=== PATIENT | female | born 1960 | race Caucasian/White ===

== ENCOUNTER 2020-05-27 15:40 | Outpatient (CLI) | payer BC, SELFPAY ==
--- NOTE | ~2020-05-27 | MM_ITS ---
EXAMINATION: MM screening davian BI w nafisa HISTORY: Screening mammogram TECHNIQUE: Craniocaudal and mediolateral oblique 3-D tomosynthesis images were obtained and synthetic 2-D images were generated. CAD analysis was submitted and interpreted. COMPARISON: 02/01/2019, 09/05/2017 bilateral digital screening mammogram examinations BREAST PARENCHYMAL COMPOSITION: There are scattered areas of fibroglandular density. FINDINGS: There is no evidence of suspicious mass, calcification, or architectural distortion to sugg est malignancy in either breast. There has been no suspicious interval change. IMPRESSION: 1. No mammographic evidence of malignancy. 2. Recommend routine screening mammography in one year. BI-RADS Category 1: Negative Reviewed, dictated and finalized at location A. 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
== END 2020-05-27 15:41 | disposition home or self-care (01) ==
LOC: ANHIMG 15:43
PROVIDERS: Visit Provider Obstetrics & Gynecology
DX: Z12.31 Encounter for screening mammogram for malignant neoplasm of breast (principal)
CPT/HCPCS: 77063; 77067

== ENCOUNTER → 2020-07-23 17:33 | Outpatient (CLI) | payer BC, SELFPAY ==
--- NOTE | ~2020-07-23 | DEXA_ITS ---
Bone Density Report Name: Kelly Charles Age: 59 Sex: Female Ethnicity: White Date of : 1960 Indication: postmenopausal osteoporosis; Referring Provider: HUGO DURAN Study: Bone densitometry was performed. Exam Date: July 23, 2020 Accession number: [id number] Bone Density: Region BMD T-score Z-score Classification AP Spine (L1-L4) 0.690 -3.2 -1.8 Osteoporosis Femoral Neck (Left) 0.635 -1.9 -0.6 Osteopenia Total Hip (Left) 0.790 -1.2 -0.3 Osteopenia Femoral Neck (Right) 0.671 -1.6 -0.3 Osteopenia Total Hip (Right) 0.799 -1.2 -0.2 Osteopenia Total Hip Mean 0.795 -1.2 -0.3 Osteopenia World Health Organization criteria for BMD impression classify patients as: Normal (T-score at or above -1.0), Osteopenia (T-score between -1.0 and -2.5), or Osteoporosis (T-score at or below -2.5). 10-year Fracture Risk: FRAX not reported because: Some T-score for Spine Total or Hip Total or Femoral Neck at or below -2.5 Previous Exams: Region Exam Age BMD T-score BMD Change BMD Change Date g/cm2 vs Baseline vs Previous AP Spine(L1-L4) 07/23/2020 59 0.690 -3.2 -0.172* -0.069* 09/05/2017 56 0.759 -2.6 -0.103* 0.001 06/27/2014 53 0.758 -2.6 -0.103* -0.103* 09/17/2010 49 0.861 -1.7 Total Hip(Left) 07/23/2020 59 0.790 -1.2 -0.191* -0.066* 09/05/2017 56 0.856 -0.7 -0.125* -0.019 06/27/2014 53 0.875 -0.5 -0.106* -0.106* 09/17/2010 49 0.981 0.3 Total Hip(Right) 07/23/2020 59 0.799 -1.2 -0.147* -0.072* 09/05/2017 56 0.871 -0.6 -0.075* -0.009 06/27/2014 53 0.880 -0.5 -0.066* -0.066* 09/17/2010 49 0.946 0.0 *Denotes significance at 95% confidence level, LSC for AP Spine = 0.022 g/cm2, LSC for Total Hip = 0.027 g/cm2 Clinical Information Provided by Patient: Has used the following medications: Vitamin D, Calcium, MTV Patient maximum height was 68.0 Menopause Age: 48 No regular weight bearing exercise Drinks caffeinated beverages Onset of menses at age 11 Number of children 3 Impression: The patient has osteoporosis, based on the Total Spine T-score. The BMD for the AP Spine(L1-L4) decreased, changing by -0.069 since the last DXA exam. The BMD for the Total Hip(Left) decreased, changing by -0.066 since the last DXA exam. The BMD for the Total Hip(Right) decreased, egan
== END ==
PROVIDERS: Visit Provider Obstetrics & Gynecology
DX: Z78.0 Asymptomatic menopausal state (principal); M81.0 Age-related osteoporosis without current pathological fracture; M16.0 Bilateral primary osteoarthritis of hip
CPT/HCPCS: 77080

== ENCOUNTER 2021-07-11 09:32 | Outpatient (CLI) | payer BC, SELFPAY ==
--- NOTE | ~2021-07-11 | MM_ITS ---
EXAMINATION: MM screening davian BI w nafisa HISTORY: Screening TECHNIQUE: Craniocaudal and mediolateral oblique 3-D tomosynthesis images were obtained and synthetic 2-D images were generated. CAD analysis was submitted and interpreted. COMPARISON: Comparison to multiple prior studies sequentially, with oldest reviewed study dated 08/14. BREAST PARENCHYMAL COMPOSITION: The breasts are heterogeneously dense, which may obscure small masses . FINDINGS: There is no evidence of suspicious mass, calcification, or architectural distortion to sugg est malignancy in either breast. There has been no suspicious interval change. IMPRESSION: 1. No mammographic evidence of malignancy. 2. Recommend routine screening mammography in one year. BI-RADS Category 1: Negative Reviewed, dictated and finalized at location A. 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
== END 2021-07-11 09:33 | disposition home or self-care (01) ==
LOC: ANHIMG 09:34
PROVIDERS: PCP Nurse Practitioner Family; Visit Provider Obstetrics & Gynecology
DX: Z12.31 Encounter for screening mammogram for malignant neoplasm of breast (principal)
CPT/HCPCS: 77063; 77067

== ENCOUNTER 2022-09-07 08:49 | Outpatient (CLI) | payer OTHER, SELFPAY ==
--- NOTE | ~2022-09-07 | MM_ITS ---
EXAMINATION: MM screening davian BI w nafisa HISTORY: Screening mammogram TECHNIQUE: Craniocaudal and mediolateral oblique 3-D tomosynthesis images were obtained and synthetic 2-D images were generated. CAD analysis was submitted and interpreted. COMPARISON: July 11, 2021, May 27, 2020, February 01, 2019 bilateral screening mammogram examin ations BREAST PARENCHYMAL COMPOSITION: The breasts are heterogeneously dense, which may obscure small masses . FINDINGS: There is no evidence of suspicious mass, calcification, or architectural distortion to sugg est malignancy in either breast. There has been no suspicious interval change. IMPRESSION: 1. No mammographic evidence of malignancy. 2. Recommend routine screening mammography in one year. BI-RADS Category 1: Negative Reviewed, dictated and finalized at location A.
--- NOTE | ~2022-09-07 | DEXA_ITS ---
Bone Density Report Name: CHET CHRISTIAN Age: 61 Sex: Female Ethnicity: White Date of : 1960 Indication: postmenopausal; screening for osteoporosis; Referring Provider: HUGO DURAN Study: Bone densitometry was performed. Exam Date: September 07, 2022 Accession number: [id number] Bone Density: Region BMD T-score Z-score Classification AP Spine(L1-L4) 0.714 -3.0 -1.4 Osteoporosis Femoral Neck (Left) 0.642 -1.9 -0.5 Osteopenia Total Hip (Left) 0.778 -1.3 -0.2 Osteopenia Femoral Neck (Right) 0.663 -1.7 -0.3 Osteopenia Total Hip (Right) 0.784 -1.3 -0.2 Osteopenia Total Hip Mean 0.781 -1.3 -0.2 Osteopenia World Health Organization criteria for BMD impression classify patients as: Normal (T-score at or above -1.0), Osteopenia (T-score between -1.0 and -2.5), or Osteoporosis (T-score at or below -2.5). 10-year Fracture Risk: FRAX not reported because: Some T-score for Spine Total or Hip Total or Femoral Neck at or below -2.5 Treated for osteoporosis Clinical Information Provided by Patient: Is being treated for osteoporosis Has used the following medications: Reclast (i.e. zoledronate), Vitamin D, Calcium Patient maximum height was 68 Menopause Age: 47 Drinks caffeinated beverages Onset of menses at age 11 Number of children 3 Impression: The patient has osteoporosis, based on the Total Spine T-score. Discussion: It is important to ask patients whether they are taking their medications and to encourage continued and appropriate compliance with their osteoporosis therapies to reduce fracture risk. It is also important to review their risk factors and encourage appropriate calcium and vitamin D intakes, exercise, fall prevention and other lifestyle measures. Follow-Up: Consider a repeat BMD and Vertebral Fracture Assessment (VFA) exam in 2 years or sooner if medically necessary, to reassess this patient's status. Reported by: ROMAN on 09/07/2022 9:17:00 AM. Reviewed, dictated and finalized at location AGordon ZHOU
== END 2022-09-07 08:50 | disposition home or self-care (01) ==
LOC: ANHIMG 08:52
PROVIDERS: PCP Nurse Practitioner Family; Visit Provider Obstetrics & Gynecology
DX: Z12.31 Encounter for screening mammogram for malignant neoplasm of breast (principal); Z78.0 Asymptomatic menopausal state; M81.0 Age-related osteoporosis without current pathological fracture; M85.88 Other specified disorders of bone density and structure, other site
CPT/HCPCS: 77063; 77067; 77080

== ENCOUNTER 2023-09-23 14:53 | Outpatient (CLI) | payer OTHER, SELFPAY ==
--- NOTE | ~2023-09-23 | MM_ITS ---
EXAMINATION: MM screening davian BI w nafisa HISTORY: Screening TECHNIQUE: Craniocaudal and mediolateral oblique 3-D tomosynthesis images were obtained and synthetic 2-D images were generated. CAD analysis was submitted and interpreted. COMPARISON: Comparison to multiple prior studies sequentially, with oldest reviewed study dated 05/07. BREAST PARENCHYMAL COMPOSITION: Not dense: There are scattered areas of fibroglandular density. FINDINGS: There is no evidence of suspicious mass, calcification, or architectural distortion to sugg est malignancy in either breast. There has been no suspicious interval change. IMPRESSION: 1. No mammographic evidence of malignancy. 2. Recommend routine screening mammography in one year. BI-RADS Category 1: Negative Reviewed, dictated and finalized at location B.
== END 2023-09-23 14:54 | disposition home or self-care (01) ==
LOC: ANHIMG 14:56
PROVIDERS: PCP Nurse Practitioner Family; Visit Provider Obstetrics & Gynecology
DX: Z12.31 Encounter for screening mammogram for malignant neoplasm of breast (principal)
CPT/HCPCS: 77063; 77067

== ENCOUNTER 2023-12-27 12:30 | Outpatient (CLI) | payer OTHER, SELFPAY ==
--- NOTE | 2023-12-27 12:37 | ECHO_ITS ---
Patient Info Name: Kelly Charles Age: 63 years : 1960 Gender: Female Ht: 68 in Wt: 145 lbs BSA: 1.78 m2 HR: 74 bpm BP: 112 / 86 mmHg Heart Rhythm: Sinus Rhythm Technical Quality: Good Exam Date: 12/27/2023 12:44 PM Exam Location: Echo Lab Patient Status: Outpatient Admit Date: 12/27/2023 Staff Ordering Physician: Josh Peres DO Can Inspector: Almaz Bright RDCS Attending Provider: Josh Peres DO Referring Physician: Ja TOTH; Exam Type: CA echo doppler color flow Study Info Indications - Aneurysm of the ascending aorta, without ruputure Complete two-dimensional, color flow and Doppler transthoracic echocardiogram is performed. Summary 1. Complete two-dimensional, color flow and Doppler transthoracic echocardiogram is performed. 2. Left ventricular chamber dimension is normal. 3. Left ventricular systolic function is normal, estimated at 55-60%. 4. The left ventricular diastolic function is grade I diastolic dysfunction. 5. E/e' 8 is minimally elevated. 6. There is mild aortic valve sclerosis. 7. There is trace mitral valve regurgitation. 8. There is mild tricuspid valve regurgitation. 9. No pulmonary hypertension, estimated pulmonary arterial systolic pressure is 20 mmHg. 10. There is trace pulmonic regurgitation. Left Ventricle E/e' 8 is minimally elevated. Left ventricular chamber dimension is normal. Left ventricular systolic function is normal, estimated at 55-60%. The left ventricular diastolic function is grade I diastolic dysfunction. Right Ventricle Right ventricular systolic function is normal and with normal TAPSE 2.1 cm. Right ventricular chamber dimension is normal. Left Atria Left atrial chamber dimension is normal. Right Atria Right atrial chamber dimension is normal. Aortic Valve The aortic valve is trileaflet. There is mild aortic valve sclerosis. There is no aortic valve stenosis. There is no aortic valve regurgitation. Pulmonic Valve There is trace pulmonic regurgitation. Mitral Valve There is no mitral valve stenosis. There is trace mitral valve regurgitation. Tricuspid Valve There is mild tricuspid valve regurgitation. No pulmonary hypertension, estimated pulmonary arterial systolic pressure is 20 mmHg. Pericardium/Pleural There is no pericardial effusion. Inferior Vena Cava Normal inferior vena cava with >50% collapse upon inspiration consistent with normal right atrial pressure, 5 mmHg. Aorta The aortic root size at the sinus of Valsalva is normal at 3.6 cm. The prox ascending aorta size is normal at 3.7 cm. Left Ventricular Outflow Tract Name Value Normal LVOT 2D LVOT Diameter 2.0 cm LVOT Doppler LVOT Peak Gradient 3 mmHg LVOT Mean Gradient 1 mmHg LVOT VTI 14 cm LVOT VTI/AV VTI Ratio 0.5 LVOT Stroke Volume 42 ml LVOT CO 2.6 l/min LVOT CI 1.5 l/min/m2 Pulmonic Valve Name Value Normal
== END 2023-12-27 12:31 | disposition home or self-care (01) ==
LOC: ANHCARD 12:33
PROVIDERS: PCP Nurse Practitioner Family; Visit Provider Internal Medicine Cardiovascular Disease
DX: I71.21 Aneurysm of the ascending aorta, without rupture (principal); I51.89 Other ill-defined heart diseases; I35.8 Other nonrheumatic aortic valve disorders; I36.1 Nonrheumatic tricuspid (valve) insufficiency
CPT/HCPCS: 93306

== ENCOUNTER 2024-08-28 08:45 | Outpatient (CLI) | payer OTHER, SELFPAY ==
--- NOTE | ~2024-08-28 | US_ITS ---
EXAMINATION: US pelvic complete w TV DATE: 08/28/2024 09:08 INDICATION: Postmenopausal bleeding. TECHNIQUE: Multiple transabdominal and transvaginal sonographic images of the pelvis were obtained. COMPARISON: CT abdomen and pelvis 07/30/2011 FINDINGS: TRANSABDOMINAL ULTRASOUND: The uterus measures 8.3 x 5.5 x 3.8 cm. There is no free fluid in the pelvis. TRANSVAGINAL ULTRASOUND: The endometrial complex measures 5 mm in thickness, which is the borderline of normal. The ovaries ar e not visualized. IMPRESSION: 1. Normal pelvis. Reviewed, dictated and finalized at location A. IMPRESSION: 1. Normal pelvis.
== END 2024-08-28 08:46 | disposition home or self-care (01) ==
LOC: GOSHIMG 08:46
PROVIDERS: PCP Obstetrics & Gynecology; Visit Provider Obstetrics & Gynecology
DX: N95.0 Postmenopausal bleeding (principal)
CPT/HCPCS: 76830; 76856

== ENCOUNTER 2024-09-26 15:31 | Outpatient (CLI) | payer OTHER, SELFPAY ==
--- NOTE | ~2024-09-26 | MM_ITS ---
EXAMINATION: MM screening davian BI w nafisa HISTORY: Screening TECHNIQUE: Craniocaudal and mediolateral oblique 3-D tomosynthesis images were obtained and synthetic 2-D images were generated. CAD analysis was submitted and interpreted. COMPARISON: Comparison to multiple prior studies sequentially, with oldest reviewed study dated 07/2017. BREAST PARENCHYMAL COMPOSITION: Dense: The breasts are heterogeneously dense, which may obscure small masses FINDINGS: There is no evidence of suspicious mass, calcification, or architectural distortion to sugg est malignancy in either breast. There has been no suspicious interval change. IMPRESSION: 1. No mammographic evidence of malignancy. 2. Recommend routine screening mammography in one year. BI-RADS Category 1: Negative Reviewed, dictated and finalized at location A.
--- OUTSIDE RECORDS SUMMARY | 2024-09-26 17:30 | XMS_ITS | Referral Summary ---
Author Organization [facility] Address [address] [place] [address] Phone Care Team Providers Care Engineering Manager Electronics Name Role Phone Ashlee Pereyra PHOTO ENGRAVER Primary Care Provider + Allergies No known active allergies Medications multivitamin tablet tablet take 1 tablet by oral route every day with food 0 1 Active methocarbamol (ROBAXIN) 500 mg tablet TAKE ONE TABLET BY MOUTH THREE TIMES A DAY 90 0 5 Active cholecalciferol (VITAMIN D3) 2,000 unit tablet Take 1 tablet by oral route every day 0 0 7 Active polyethylene glycol (MIRALAX) 17 gram/dose powder take (17G) by oral route every day mixed with 8 oz. water, juice, soda, coffee or tea 0 0 5 Active calcium carbonate (CALCIUM 600) 1,500 mg (600 mg of elemental calcium) tablet take 1 by Oral route once 90 0 5 Active amitriptyline (ELAVIL) 10 mg tablet take 1 tablet by oral route every day at bedtime 90 3 5 Active magnesium gluconate 200 mg tabletIndicatio ns:hypomagnesem ia 1 tablet (200 mg total) Active acidophilus-pec tin, citrus 100 million cell-10 mg capsule Take by mouth Activ e acyclovir (ZOVIRAX) 400 mg tablet 2 tablets (800 mg total) Active prednisoLONE acetate (PRED FORTE) 1 % ophthalmic suspension prednisolone acetate 1 % eye drops,suspension Active esomeprazole DR (NexIUM) 20 mg capsule Take 1 capsule (20 mg total) by mouth daily before breakfast Active brimonidine-shaheed oloL (COMBIGAN) 0.2-0.5 % ophthalmic solution INSTILL ONE DROP TWICE DAILY RIGHT EYE Active brimonidine-shaheed oloL (COMBIGAN) 0.2-0.5 % ophthalmic solution INSTILL ONE DROP TWICE DAILY RIGHT EYE 4 Active estradioL (ESTRACE) 0.01 % (0.1 mg/gram) vaginal cream INSERT 1 GRAM VAGINALLY TWICE WEEKLY Active estradioL (VIVELLE-DOT) 0.1 mg/24 hr APPLY 0.1MG TO STOMACH, UPPER ARM, OR BUTTOCKS TWICE WEEKLY 4 Active lisinopriL (PRINIVIL,ZESTR IL) 5 mg tablet Take 1 tablet (5 mg total) by mouth daily Active lovastatin (MEVACOR) 20 mg tablet Take 1 tablet (20 mg total) by mouth daily Active progesterone (PROMETRIUM) 100 mg capsule Take 1 capsule (100 mg total) by mouth nightly 4 Active valACYclovir (VALTREX) 1 gram tablet Take 1 tablet 3 times a day by oral route as directed for 7 days. 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/2016): Psychogenic headache Insomnia 12/26/2014 Overview (09/09/2016): Insomnia Muscle pain 07/18/2014 Abdominal pain 07/18/[address] 05/16/2014 Neck pain 09/20/2013 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 Chest pain 09/20/2013 Joint pain 09/20/2013 Encounter for preventive health examination 03/07 Immunizations Immunization Administration Dates Next Due Influenza, Quadrivalent, Split, Intramuscular Influenza, Trivalent, IM (MDV) 03/10/2014 Social History Tobacco Use Types Packs/Day Years Used Date Smoking Tobacco: Never Smokeless Tobacco: Never Alcohol Use Standard Drinks/Week Comments Yes 0 (1 standard drink = 0.6 oz pur e alcohol) Comments Unknown Sex and Gender Information Value Date Recorded Sex Assigned at Not on file Legal Sex Female 3:41 PM [employer] Gender Identity Not on file Sexual Orientation Not on file Last Filed Vital Signs Vital Sign Reading Time Taken Comments Blood Pressure 107/81 10/17/2020 9:49 AM CDT Pulse 62 10/17/2020 9:49 AM CDT Temperature 36.7 C (98 F) 10/17/2020 9:49 AM CDT Respiratory Rate 18 10/17/2020 9:49 AM CDT Oxygen Saturation 100% 10/17/2020 9:49 AM CDT Inhaled Oxygen Concentration - - Weight 64.4 kg (142 lb) 01/23/2024 12:46 PM CDT Height 170.6 cm (5' 7.17 ) 01/23/2024 12:46 PM C DT Body Mass Index 22.13 01/23/2024 12:46 PM CDT Plan of Treatment Not on file Procedures Procedure Name Priority Date/Time Associated Diagnosis Comments COLONOSCOPY 10/17/2020 7:21 AM CDT from Last 3 Months or Most Recently Relevant to Health Maintenance Results * COLONOSCOPY (10/17/2020 7:21 AM CDT) Anatomical Region Laterality Modality Other Narrative Procedure Note Pee Leija MD - 10/17/2020 7:21 AM CDT [facility] Patient Name: Kelly Charles Procedure Date: 10/17/2020 7:21 AM Date of : 1960 Admit Type: Outpatient Age: 59 Gender: Female Attending MD: Pee Leija M.D. [facility] 2 Note Status: Finalized Patient Profile: Refer to note in patient chart for documentation of history and physical. Procedure: Colonoscopy Indications: High risk colon cancer surveillance: Personalhistory of colonic polyps, Last colonoscopy: September 2015 Referring MD: STEPHANY Rabago Providers: Pee Leija M.D. Impression: - Hemorrhoids found on perianal exam. - The entire examined colon is normal. - No specimens collected. Recommendation: - Discharge patient to home. - Resume previous diet. - Continue present medications. - Repeat colonoscopy in 5 years for surveillance. - Return to primary care physician as previously scheduled. Medicines: Propofol per Anesthesia Complications: No immediate complications. Estimated Blood Loss: Estimated blood loss: none. Procedure: Pre-Anesthesia Assessment: - This assessment was completed [Time ofAssessment] prior to the administration of sedation. The benefits, risks and alternatives of theprocedure and sedation were discussed and informed consentwas obtained. All questions were answered. Please referto the signed informed consent document in the medical record. The bowel preparation used was Miralax via single dose instruction. The bowel preparation used was bisacodyl tablets via single dose instruction.The scope was passed under direct vision. TheColonoscope [id number] was introduced through the anus and advanced to the the cecum, identified by appendiceal orifice and ileocecal valve. The scopewas passed under direct vision. The [id number] was introduced through the and advancedto the. The colonoscopy was extremely difficult due toa redundant colon. Successful completion of the procedure was aided by changing the patient to a supine position. The patient tolerated theprocedure well. The quality of the bowel preparation was excellent. Findings: Hemorrhoids were found on perianal exam. The colon (entire examined portion) appeared normal. Electronically signed by Pee Leija M.D. Pee Leija M.D. 10/17/2020 9:20:32 AM Number of Addenda: 0 Note Initiated On: 10/17/2020 7:21 AM Procedure Code(s): --- Professional --- G0105, Colorectal cancer screening; colonoscopy on individual at high risk Diagnosis Code(s): --- Professional --- K64.9, Unspecified hemorrhoids Z86.010, Personal history of colonic polyps CPT copyright 2019 [employer]. All rights reserved. The codes documented in this report are preliminary and upon veneer drier reviewmay be revised to meet current compliance requirements. Recognized by the [employer] for promoting quality in endoscopy Pee Leija MD ENDOSCOPY PROCEDURES Final Re sult from Last 3 Months or Most Recently Relevant to Health Maintenance Insurance [facility] BLUE ACCESS [facility] Advance Directives For more information, please contact: [phone] * Full Code (Latest Code Status on File) Date Activated Date Inactivated Comments 10/17/2020 7:57 AM 10/17/2020 2:13 PM * Full Code Date Activated Date Inactivated Comments 10/17/2020 7:56 AM 10/17/2020 7:57 AM Care Teams Engineering Manager Electronics Relationship Specialty Start Date End Date Ashlee Pereyra NP PCP - General Nurse Practitioner 05/15/19
--- OUTSIDE RECORDS SUMMARY | 2024-09-26 17:30 | XMS_ITS | Data Portability ---
Author Organization [facility] [employer], Main Office Address [address] [place] [address] Assessment No assessment recorded. Plan of Treatment Reminders Order Date Submit Date Provider Last Modified By Organization Details Last Modified Time Details Appointments None record ed. Lab None record ed. Referral None record ed. Procedures None record ed. Surgeries None record ed. Imaging None record ed. Medication Orders None record ed. Patient TargetsNo targets recorded. Patient Instructions Encounter Date Encounter Id Patient Instructions Last Modified By Organization Details Last Modified Time 04/14/2023 [id number] FU in 1 year for wellness after 04/15/24 [email or web address] Not available 04/14/2023 16:43:11 Reason for Referral None Reported. Results Created Date Observation Date Name Description Value Unit Range Abnormal Flag Note LastModifiedBy Organization Detail LastModifiedTime 02/18/2002/17/2021 COMPR EHENS EVE METAB OLIC PANEL sodium 140 mmol/ L 137-14 5 Not Available [facility] (Lab) [address] [place], [address], 02/17/2021 21:29:46 02/18/2002/17/2021 COMPR EHENS EVE METAB OLIC PANEL potassium 4.7 mmol/ L 3.5-5. 1 Not Available [facility] (Lab) [address] [place], [address], 02/17/2021 21:29:46 02/18/2002/17/2021 COMPR EHENS EVE METAB OLIC PANEL chloride 104 mmol/ L 98-107 Not Available [facility] (Lab) [address] [place], [address], 02/17/2021 21:29:46 02/18/20 21 02/17/2021 COMPR EHENS EVE METAB OLIC PANEL carbon dioxide 30 mmol/ L 22-30 Not Available [facility] (Lab) [address] [place], [address], 02/17/2021 21:29:46 02/18/20 21 02/17/2021 COMPR EHENS EVE METAB OLIC PANEL agap 10.7 mmol/ L 14-22 low Not Available [facility] (Lab) [address] [place], [address], 02/17/2021 21:29:46 02/18/20 21 02/17/2021 COMPR EHENS EVE METAB OLIC PANEL glucose 85 mg/dL 70-99 Not Available [facility] (Lab) [address] [place], [address], 02/17/2021 21:29:46 02/18/20 21 02/17/2021 COMPR EHENS EVE METAB OLIC PANEL BUN 21 mg/dL 8-19 high Not Available [facility] (Lab) [address] [place], [address], 02/17/2021 21:29:46 02/18/20 21 02/17/2021 COMPR EHENS EVE METAB OLIC PANEL creatinine 0.73 mg/dL 0.66-1 .25 Not Available [facility] (Lab) [address] [place], [address], 02/17/2021 21:29:46 02/18/20 21 02/17/2021 COMPR EHENS EVE METAB OLIC PANEL GFR >60 Refer ence Range : [place] ge GFR Healt hy Adult : >60 mL/mi n/1.7 3 m2 Chron ic Kidne y Disea se: 15-60 mL/mi n/1.7 3 m2 Kidne y Failu re: <15/m L/min /1.73 m2 www.n iddk. nih.g ov MDRD study equat ion hasn' t been valid ated in child frandy <18 yrs of age, pregn ant women , the elder ly >85 yrs of age, or in some racia l or ethni c subgr oups, suc as Hispa nics. Outsi de the valid ated earnest eters , estim ated GFR is less accur ate requi ring clini braden judgm ent on a case by case basis . Clini braden inter preta tion for other races and ages must be made by the clini david . Futhe rmore , any of th e limit ation s with the use of serum creat inine relat ed to nutri evelyn l statu s o r medic ation usage hasn' t accou nted for the MDRD Study equat ion. For perso ns < 18 yrs of age, a pedia tric GFR calcu lator can be locat ed on the [facility] websi te: https :[email or web address] [email or web address] [email or web address] rg/pr ofess ional s/kdo qi/gf r_cal culat or Not Available [facility] (Lab) [address] [place], [address], 02/17/2021 21:29:46 02/18/20 21 02/17/2021 COMPR EHENS EVE METAB OLIC PANEL alkaline phosphatase 35 U/L 38-126 low Not Available [facility] (Lab) [address] [place], [address], 02/17/2021 21:29:46 02/18/20 21 02/17/2021 COMPR EHENS EVE METAB OLIC PANEL alanine aminotransfe rase 21 U/L 0-35 Not Available [facility] (Lab) [address] [place], [address], 02/17/2021 21:29:46 02/18/20 21 02/17/2021 COMPR EHENS EVE METAB OLIC PANEL aspartate aminotransfe rase 34 U/L 15-37 Not Available [facility] (Lab) [address] [place], [address], 02/17/2021 21:29:46 02/18/20 21 02/17/2021 COMPR EHENS EVE METAB OLIC PANEL bilirubin, total 0.70 mg/dL 0.20-1 .30 Not Available [facility] (Lab) [address] [place], [address], 02/17/2021 21:29:46 02/18/20 21 02/17/2021 COMPR EHENS EVE METAB OLIC PANEL calcium 9.6 mg/dL 8.4-10 .2 Not Available [facility] (Lab) [address] [facility] [place], [address], 02/17/2021 21:29:46 02/18/20 21 02/17/2021 COMPR EHENS EVE METAB OLIC PANEL total protein 7.8 g/dL 6.3-8. 2 Not Available [facility] (Lab) [address] [place], [address], 02/17/2021 21:29:46 02/18/20 21 02/17/2021 COMPR EHENS EVE METAB OLIC PANEL albumin 4.7 g/dL 3.4-5. 0 Not Available [facility] (Lab) [address] [place], [address], 02/17/2021 21:29:46 02/18/20 21 02/17/2021 COMPR EHENS EVE METAB OLIC PANEL globulin 3.1 g/dL 2.6-4. 2 Not Available [facility] (Lab) [address] [place], [address], 02/17/2021 21:29:46 02/18/20 21 02/17/2021 COMPR EHENS EVE METAB OLIC PANEL A/G ratio 1.5 ratio 1.0-2. 0 Not Available [facility] (Lab) [address] [place], [address], 02/17/2021 21:29:46 02/18/20 21 02/17/2021 CBC/C OMPLE TE BLD COUNT W/DIF F white blood cells 3.5 x10'3 /uL 4.2-10 .8 low Not Available [facility] (Lab) [address] [place], [address], 02/17/2021 20:28:08 02/18/20 21 02/17/2021 CBC/C OMPLE TE BLD COUNT W/DIF F red blood cells 4.31 x10'6 /uL 3.80-5 .20 Not Available [facility] (Lab) [address] [facility] [place], [address], 02/17/2021 20:28:08 02/18/20 21 02/17/2021 CBC/C OMPLE TE BLD COUNT W/DIF F hemoglobin 14.0 g/dL 12.0-1 5.6 Not Available [facility] (Lab) [address] [place], [address], 02/17/2021 20:28:08 02/18/20 21 02/17/2021 CBC/C OMPLE TE BLD COUNT W/DIF F hematocrit 42.5 % 35.7-4 5.7 Not Available [facility] (Lab) [address] [facility] [place], [address], 02/17/2021 20:28:08 02/18/20 21 02/17/2021 CBC/C OMPLE TE BLD COUNT W/DIF F mean red cell volume 98.6 fL 82.0-9 9.0 Not Available [facility] (Lab) [address] [place], [address], 02/17/2021 20:28:08 02/18/20 21 02/17/2021 CBC/C OMPLE TE BLD COUNT W/DIF F mean red cell hemoglobin 32.5 pg 27.0-3 3.0 Not Available [facility] (Lab) [address] [place], [address], 02/17/2021 20:28:08 02/18/20 21 02/17/2021 CBC/C OMPLE TE BLD COUNT W/DIF F mean RBC HGB concentratio n 32.9 g/dL 31.0-3 6.0 Not Available [facility] (Lab) [address] [place], [address], 02/17/2021 20:28:08 02/18/20 21 02/17/2021 CBC/C OMPLE TE BLD COUNT W/DIF F red cell distribution width 12.0 % 11.8-1 5.5 Not Available [facility] (Lab) [address] [place], [address], 02/17/2021 20:28:08 02/18/20 21 02/17/2021 CBC/C OMPLE TE BLD COUNT W/DIF F platelets 266 x10'3 /uL 150-40 0 Not Available [facility] (Lab) [address] [place], [address], 02/17/2021 20:28:08 02/18/20 21 02/17/2021 CBC/C OMPLE TE BLD COUNT W/DIF F mean platelet volume 10.0 fL 9.0-12 .4 Not Available [facility] (Lab) [address] [place], [address], 02/17/2021 20:28:08 02/18/20 21 02/17/2021 CBC/C OMPLE TE BLD COUNT W/DIF F neutrophils 50.5 % 39.0-7 2.0 Not Available [facility] (Lab) [address] [place], [address], 02/17/2021 20:28:08 02/18/20 21 02/17/2021 CBC/C OMPLE TE BLD COUNT W/DIF F lymphocytes 34.8 % 16.0-4 7.0 Not Available [facility] (Lab) [address] [place], [address], 02/17/2021 20:28:08 02/18/20 21 02/17/2021 CBC/C OMPLE TE BLD COUNT W/DIF F monocytes 9.6 % 5.0-12 .0 Not Available [facility] (Lab) [address] [place], [address], 02/17/2021 20:28:08 02/18/20 21 02/17/2021 CBC/C OMPLE TE BLD COUNT W/DIF F eosinophils 4.0 % 1.0-7. 0 Not Available [facility] (Lab) [address] [place], [address], 02/17/2021 20:28:08 02/18/20 21 02/17/2021 CBC/C OMPLE TE BLD COUNT W/DIF F basophils 0.8 % 0.0-2. 0 Not Available [facility] (Lab) [address] [place], [address], 02/17/2021 20:28:08 02/18/20 21 02/17/2021 CBC/C OMPLE TE BLD COUNT W/DIF F immature granulocytes 0.3 % 0.00-0 .50 Not Available [facility] (Lab) [address] [place], [address], 02/17/2021 20:28:08 02/18/20 21 02/17/2021 CBC/C OMPLE TE BLD COUNT W/DIF F neutrophils, absolute count 1.78 x10'3 /uL 1.5-8. 0 Not Available [facility] (Lab) [address] [place], [address], 02/17/2021 20:28:08 02/18/20 21 02/17/2021 CBC/C OMPLE TE BLD COUNT W/DIF F lymphocytes, absolute count 1.23 x10'3 /uL 1.07-3 .43 Not Available [facility] (Lab) [address] [place], [address], 02/17/2021 20:28:08 02/18/20 21 02/17/2021 CBC/C OMPLE TE BLD COUNT W/DIF F monocytes, absolute count 0.34 x10'3 /uL 0.29-0 .99 Not Available [facility] (Lab) [address] [place], [address], 02/17/2021 20:28:08 02/18/20 21 02/17/2021 CBC/C OMPLE TE BLD COUNT W/DIF F eosinophils, absolute count 0.14 x10'3 /uL 0.02-0 .53 Not Available [facility] (Lab) [address] [place], [address], 02/17/2021 20:28:08 02/18/20 21 02/17/2021 CBC/C OMPLE TE BLD COUNT W/DIF F basophils, absolute count 0.03 x10'3 /uL 0.01-0 .08 Not Available [facility] (Lab) [address] [place], [address], 02/17/2021 20:28:08 02/18/20 21 02/17/2021 CBC/C OMPLE TE BLD COUNT W/DIF F immature granulocytes ,absolute 0.01 x10'3 /uL 0.00-0 .05 Not Available [facility] (Lab) [address] [place], [address], 02/17/2021 20:28:08 02/18/20 21 02/17/2021 CBC/C OMPLE TE BLD COUNT W/DIF F nucleated red blood cells 0.0 % -0 Not Available [facility] (Lab) [address] [place], [address], 02/17/2021 20:28:08 02/18/20 21 02/17/2021 CBC/C OMPLE TE BLD COUNT W/DIF F NRBC# 0.00 x10'3 /uL Not Available [facility] (Lab) [address] [place], [address], 02/17/2021 20:28:08 05/08/20 21 05/08/2021 FOLAT E, SERUM /PLAS MA folate >20.0 NG/mL 2.76- Not Available [facility] (Lab) [address] [place], [address], 05/08/2021 14:34:33 05/08/20 21 05/08/2021 VITAM IN B12 (DARON PATRICIA ) vb12 828 pg/mL 239-93 1 Not Available [facility] (Lab) [address] [place], [address], 05/08/2021 14:34:28 05/08/20 21 05/08/2021 TSH W/REF PRIYANKA FT4 TSH with reflex free T4 1.510 uIU/m L 0.465- 4.680 Not Available [facility] (Lab) [address] [place], [address], 05/08/2021 14:14:21 05/08/20 21 05/08/2021 VITAM IN D 25-HY DROXY vd25oh 51.8 NG/mL 30-100 Vitam in D Statu s: Defic ient: <20 ng/mL Insuf ficie nt: 20-29 ng/mL Suffi cient : 30-10 0 ng/mL Not Available [facility] (Lab) [address] [place], [address], 05/08/2021 14:13:56 05/08/20 21 05/08/2021 COMPR EHENS EVE METAB OLIC PANEL sodium 140 mmol/ L 137-14 5 Not Available [facility] (Lab) [address] [place], [address], 05/08/2021 13:33:25 05/08/20 21 05/08/2021 COMPR EHENS EVE METAB OLIC PANEL potassium 4.7 mmol/ L 3.5-5. 1 Not Available [facility] (Lab) [address] [place], [address], 05/08/2021 13:33:25 05/08/20 21 05/08/2021 COMPR EHENS EVE METAB OLIC PANEL chloride 102 mmol/ L 98-107 Not Available [facility] (Lab) [address] [place], [address], 05/08/2021 13:33:25 05/08/20 21 05/08/2021 COMPR EHENS EVE METAB OLIC PANEL carbon dioxide 28 mmol/ L 22-30 Not Available [facility] (Lab) [address] [place], [address], 05/08/2021 13:33:25 05/08/20 21 05/08/2021 COMPR EHENS EVE METAB OLIC PANEL agap 14.7 mmol/ L 14-22 Not Available [facility] (Lab) [address] [place], [address], 05/08/2021 13:33:25 05/08/20 21 05/08/2021 COMPR EHENS EVE METAB OLIC PANEL glucose 91 mg/dL 70-99 Not Available [facility] (Lab) [address] [place], [address], 05/08/2021 13:33:25 05/08/20 21 05/08/2021 COMPR EHENS EVE METAB OLIC PANEL BUN 18 mg/dL 8-19 Not Available [facility] (Lab) [address] [place], [address], 05/08/2021 13:33:25 05/08/20 21 05/08/2021 COMPR EHENS EVE METAB OLIC PANEL creatinine 0.76 mg/dL 0.66-1 .25 Not Available [facility] (Lab) [address] [place], [address], 05/08/2021 13:33:25 05/08/20 21 05/08/2021 COMPR EHENS EVE METAB OLIC PANEL GFR >60 Refer ence Range : [place] ge GFR Healt hy Adult : >60 mL/mi n/1.7 3 m2 Chron ic Kidne y Disea se: 15-60 mL/mi n/1.7 3 m2 Kidne y Failu re: <15/m L/min /1.73 m2 www.n iddk. [facility].g ov The MDRD study equat ion has not been valid ated in child frandy <18 years of age; pregn ant women ; the elder ly >85 years of age; or in some racia l or ethni c subgr oups, such as Hispa nics. Outsi de the valid ated earnest eters , estim ated GFR is less accur ate, requi ring clini braden judgm ent on a case- by-ca se basis . Clini braden inter preta tion for other races and ages must be made by the clini david. The MDRD study equat ion has not been valid ated for the evalu ation of serum creat inine relat ed to nutri evelyn l statu s or medic ation usage . For perso ns <18 years of age, a pedia tric GFR calcu lator is avail able on the [facility] websi te: https :[email or web address] [email or web address].emma [email or web address] rg/pr ofess ional s/kdo qi/gf r_cal culat or Not Available [facility] (Lab) [address] [place], [address], 05/08/2021 13:33:25 05/08/20 21 05/08/2021 COMPR EHENS EVE METAB OLIC PANEL alkaline phosphatase 40 U/L 38-126 Not Available [facility] (Lab) [address] [place], [address], 05/08/2021 13:33:25 05/08/20 21 05/08/2021 COMPR EHENS EVE METAB OLIC PANEL alanine aminotransfe rase 22 U/L 0-35 Not Available [facility] (Lab) [address] [place], [address], 05/08/2021 13:33:25 05/08/20 21 05/08/2021 COMPR EHENS EVE METAB OLIC PANEL aspartate aminotransfe rase 38 U/L 15-37 high Not Available [facility] (Lab) [address] [place], [address], 05/08/2021 13:33:25 05/08/20 21 05/08/2021 COMPR EHENS EVE METAB OLIC PANEL bilirubin, total 0.50 mg/dL 0.20-1 .30 Not Available [facility] (Lab) [address] [place], [address], 05/08/2021 13:33:25 05/08/20 21 05/08/2021 COMPR EHENS EVE METAB OLIC PANEL calcium 9.6 mg/dL 8.4-10 .2 Not Available [facility] (Lab) [address] [place], [address], 05/08/2021 13:33:25 05/08/20 21 05/08/2021 COMPR EHENS EVE METAB OLIC PANEL total protein 7.5 g/dL 6.3-8. 2 Not Available [facility] (Lab) [address] [place], [address], 05/08/2021 13:33:25 05/08/20 21 05/08/2021 COMPR EHENS EVE METAB OLIC PANEL albumin 4.4 g/dL 3.4-5. 0 Not Available [facility] (Lab) [address] [place], [address], 05/08/2021 13:33:25 05/08/20 21 05/08/2021 COMPR EHENS EVE METAB OLIC PANEL globulin 3.1 g/dL 2.6-4. 2 Not Available [facility] (Lab) [address] [place], [address], 05/08/2021 13:33:25 05/08/20 21 05/08/2021 COMPR EHENS EVE METAB OLIC PANEL A/G ratio 1.4 ratio 1.0-2. 0 Not Available [facility] (Lab) [address] [place], [address], 05/08/2021 13:33:25 05/08/20 21 05/08/2021 LIPID PANEL cholesterol 237 mg/dL 140-19 9 high NIH GEORGE NSUS RECOM MENDA TION FOR LONNIE STERO L: ADULT CHILD LOW RISK: <200 <170 BORDE RLINE : <200- 239 ----- HIGH RISK: >240 >200 Not Available [facility] (Lab) [address] [place], [address], 05/08/2021 13:33:21 05/08/20 21 05/08/2021 LIPID PANEL triglyceride s 106 mg/dL 0-150 NIH GEORGE NSUS REPOR T RECOM MENDA TION FOR TRIGL YCERI AMMON: ADULT CHILD LOW RISK: <150 ----- BODER LINE: 150-1 99 ----- HIGH RISK: >200 ----- Not Available [facility] (Lab) [address] [place], [address], 05/08/2021 13:33:21 05/08/20 21 05/08/2021 LIPID PANEL HDL cholesterol 61 mg/dL 40- Not Available [facility] (Lab) [address] [place], [address], 05/08/2021 13:33:21 05/08/20 21 05/08/2021 LIPID PANEL LDL cholesterol, calculated 155 mg/dL 0-130 high NIH GEORGE NSUS REPOR T RECOM MENDA TIONS FOR LDL: ADULT CHILD LOW RISK <130 <110 (OPTI MAL LDL) <100 ----- BORDE RLINE : 130-1 59 ----- HIGH RISK: >160 >130 A TRIGL YCERI DE RESUL T >400 INVAL IDATE S THE CALCU LATIO N FOR LDL FRACT IONAT ION - THE LDL RESUL T WILL NOT BE REPOR CAIN. Not Available [facility] (Lab) [address] [place], [address], 05/08/2021 13:33:21 05/08/20 21 05/08/2021 HEMOG LOBIN A1C HA1C 5.0 % 4.0-6. 0 Diabe derrick Scree adela Crite ralph: <5.7% Consi stent with absen ce of diabe derrick 5.7-6 .4% Consi stent with incre ased risk for diabe derrick (pred iabet es) >OR=6 .5% Consi stent with diabe derrick REFER ENCE: Diabe derrick Care 2015, 39(Patricia ppl.1 ):s13 -s22 Not Available [facility] (Lab) [address] [place], [address], 05/08/2021 13:27:21 05/08/20 21 05/08/2021 CBC/C OMPLE TE BLD COUNT W/DIF F white blood cells 3.4 x10'3 /uL 4.2-10 .8 low Not Available [facility] (Lab) [address] [place], [address], 05/08/2021 12:56:05 05/08/20 21 05/08/2021 CBC/C OMPLE TE BLD COUNT W/DIF F red blood cells 4.16 x10'6 /uL 3.80-5 .20 Not Available [facility] (Lab) [address] [place], [address], 05/08/2021 12:56:05 05/08/20 21 05/08/2021 CBC/C OMPLE TE BLD COUNT W/DIF F hemoglobin 13.4 g/dL 12.0-1 5.6 Not Available [facility] (Lab) [address] [place], [address], 05/08/2021 12:56:05 05/08/20 21 05/08/2021 CBC/C OMPLE TE BLD COUNT W/DIF F hematocrit 41.2 % 35.7-4 5.7 Not Available [facility] (Lab) [address] [place], [address], 05/08/2021 12:56:05 05/08/20 21 05/08/2021 CBC/C OMPLE TE BLD COUNT W/DIF F mean red cell volume 99.0 fL 82.0-9 9.0 Not Available [facility] (Lab) [address] [place], [address], 05/08/2021 12:56:05 05/08/20 21 05/08/2021 CBC/C OMPLE TE BLD COUNT W/DIF F mean red cell hemoglobin 32.2 pg 27.0-3 3.0 Not Available [facility] (Lab) [address] [place], [address], 05/08/2021 12:56:05 05/08/20 21 05/08/2021 CBC/C OMPLE TE BLD COUNT W/DIF F mean RBC HGB concentratio n 32.5 g/dL 31.0-3 6.0 Not Available [facility] (Lab) [address] [place], [address], 05/08/2021 12:56:05 05/08/20 21 05/08/2021 CBC/C OMPLE TE BLD COUNT W/DIF F red cell distribution width 12.1 % 11.8-1 5.5 Not Available [facility] (Lab) [address] [place], [address], 05/08/2021 12:56:05 05/08/20 21 05/08/2021 CBC/C OMPLE TE BLD COUNT W/DIF F platelets 283 x10'3 /uL 150-40 0 Not Available [facility] (Lab) [address] [place], [address], 05/08/2021 12:56:05 05/08/20 21 05/08/2021 CBC/C OMPLE TE BLD COUNT W/DIF F mean platelet volume 9.9 fL 9.0-12 .4 Not Available [facility] (Lab) [address] [place], [address], 05/08/2021 12:56:05 05/08/20 21 05/08/2021 CBC/C OMPLE TE BLD COUNT W/DIF F neutrophils 51.5 % 39.0-7 2.0 Not Available [facility] (Lab) [address] [place], [address], 05/08/2021 12:56:05 05/08/20 21 05/08/2021 CBC/C OMPLE TE BLD COUNT W/DIF F lymphocytes 32.9 % 16.0-4 7.0 Not Available [facility] (Lab) [address] [place], [address], 05/08/2021 12:56:05 05/08/20 21 05/08/2021 CBC/C OMPLE TE BLD COUNT W/DIF F monocytes 8.8 % 5.0-12 .0 Not Available [facility] (Lab) [address] [place], [address], 05/08/2021 12:56:05 05/08/20 21 05/08/2021 CBC/C OMPLE TE BLD COUNT W/DIF F eosinophils 5.6 % 1.0-7. 0 Not Available [facility] (Lab) [address] [place], [address], 05/08/2021 12:56:05 05/08/20 21 05/08/2021 CBC/C OMPLE TE BLD COUNT W/DIF F basophils 1.2 % 0.0-2. 0 Not Available [facility] (Lab) [address] [place], [address], 05/08/2021 12:56:05 05/08/20 21 05/08/2021 CBC/C OMPLE TE BLD COUNT W/DIF F immature granulocytes 0.0 % 0.00-0 .50 Not Available [facility] (Lab) [address] [place], [address], 05/08/2021 12:56:05 05/08/20 21 05/08/2021 CBC/C OMPLE TE BLD COUNT W/DIF F neutrophils, absolute count 1.75 x10'3 /uL 1.5-8. 0 Not Available [facility] (Lab) [address] [place], [address], 05/08/2021 12:56:05 05/08/20 21 05/08/2021 CBC/C OMPLE TE BLD COUNT W/DIF F lymphocytes, absolute count 1.12 x10'3 /uL 1.07-3 .43 Not Available [facility] (Lab) [address] [place], [address], 05/08/2021 12:56:05 05/08/2005/08/2021 CBC/C OMPLE TE BLD COUNT W/DIF F monocytes, absolute count 0.30 x10'3 /uL 0.29-0 .99 Not Available [facility] (Lab) [address] [place], [address], 05/08/2021 12:56:05 05/08/20 21 05/08/2021 CBC/C OMPLE TE BLD COUNT W/DIF F eosinophils, absolute count 0.19 x10'3 /uL 0.02-0 .53 Not Available [facility] (Lab) [address] [place], [address], 05/08/2021 12:56:05 05/08/20 21 05/08/2021 CBC/C OMPLE TE BLD COUNT W/DIF F basophils, absolute count 0.04 x10'3 /uL 0.01-0 .08 Not Available [facility] (Lab) [address] [place], [address], 05/08/2021 12:56:05 05/08/20 21 05/08/2021 CBC/C OMPLE TE BLD COUNT W/DIF F immature granulocytes ,absolute 0.00 x10'3 /uL 0.00-0 .05 Not Available [facility] (Lab) [address] [place], [address], 05/08/2021 12:56:05 05/08/20 21 05/08/2021 CBC/C OMPLE TE BLD COUNT W/DIF F nucleated red blood cells 0.0 % -0 Not Available [facility] (Lab) [address] [place], [address], 05/08/2021 12:56:05 05/08/20 21 05/08/2021 CBC/C OMPLE TE BLD COUNT W/DIF F NRBC# 0.00 x10'3 /uL Not Available [facility] (Lab) [address] [place], [address], 05/08/2021 12:56:05 07/13/19 23 07/14/2022 HEMOG LOBIN A1C hemoglobin A1C 5.2 %_of_ total _HGB <5.7 normal For the purpo se of kathy chapman for the prese nce of diabe derrick: <5.7% Consi stent with the absen ce of diabe derrick 5.7-6 .4% Consi stent with incre ased risk for diabe derrick (pred iabet es) > or =6.5% Consi stent with diabe derrick This assay resul t is consi stent with a decre ased risk of diabe derrick. Curre ntly, no conse nsus exist chang abdi use of hemog lobin A1c for diagn osis of diabe derrick in child frandy. [place] to [employer] Diabe derrick [employer] n (ADA) guide lines , hemog lobin A1c <7.0% repre sents optim al contr ol in non-p regna nt diabe tic patie nts. Diffe frandyt lauro cs may apply to speci fic patie nt popul ation s. [facility] Diabe derrick(A DA). Not Available [address] [address] [place], [address], 07/14/2022 03:22:34 07/13/19 23 07/14/2022 TSH TSH 1.35 mIU/L 0.40-4 .50 normal Not Available [facility] [address] [address] [place], [address], 07/14/2022 03:22:34 07/13/19 23 07/14/2022 CBC (INCL UDES DIFF/ PLT) white blood cell count 3.9 thous and/u L 3.8-10 .8 normal Not Available [facility] [address] [address] [place], [address], 07/14/2022 03:22:33 07/13/19 23 07/14/2022 CBC (INCL UDES DIFF/ PLT) red blood cell count 4.21 evens on/uL 3.80-5 .10 normal Not Available [address] [address] [place], [address], 07/14/2022 03:22:33 07/13/19 23 07/14/2022 CBC (INCL UDES DIFF/ PLT) hemoglobin 13.5 g/dL 11.7-1 5.5 normal Not Available [facility] [address] [address] [place], [address], 07/14/2022 03:22:33 07/13/19 23 07/14/2022 CBC (INCL UDES DIFF/ PLT) hematocrit 40.1 % 35.0-4 5.0 normal Not Available [address] [address] [place], [address], 07/14/2022 03:22:33 07/13/19 23 07/14/2022 CBC (INCL UDES DIFF/ PLT) MCV 95.2 fL 80.0-1 00.0 normal Not Available [address], [address], 07/14/2022 03:22:33 07/13/19 23 07/14/2022 CBC (INCL UDES DIFF/ PLT) MCH 32.1 pg 27.0-3 3.0 normal Not Available [address], [address], 07/14/2022 03:22:33 07/13/19 23 07/14/2022 CBC (INCL UDES DIFF/ PLT) MCHC 33.7 g/dL 32.0-3 6.0 normal Not Available [address], [address], 07/14/2022 03:22:33 07/13/19 23 07/14/2022 CBC (INCL UDES DIFF/ PLT) RDW 11.8 % 11.0-1 5.0 normal Not Available [address], [address], 07/14/2022 03:22:33 07/13/19 23 07/14/2022 CBC (INCL UDES DIFF/ PLT) platelet count 234 thous and/u L 140-40 0 normal Not Available [address], [address], 07/14/2022 03:22:33 07/13/19 23 07/14/2022 CBC (INCL UDES DIFF/ PLT) MPV 9.9 fL 7.5-12 .5 normal Not Available [address], [address], 07/14/2022 03:22:33 07/13/19 23 07/14/2022 CBC (INCL UDES DIFF/ PLT) absolute neutrophils 2188 cells /uL 1500-7 800 normal Not Available [address], [address], 07/14/2022 03:22:33 07/13/19 23 07/14/2022 CBC (INCL UDES DIFF/ PLT) absolute lymphocytes 1190 cells /uL 850-39 00 normal Not Available [address], [address], 07/14/2022 03:22:33 07/13/19 23 07/14/2022 CBC (INCL UDES DIFF/ PLT) absolute monocytes 277 cells /uL 200-95 0 normal Not Available [address], [address], 07/14/2022 03:22:33 07/13/19 23 07/14/2022 CBC (INCL UDES DIFF/ PLT) absolute eosinophils 207 cells /uL 15-500 normal Not Available [address], [address], 07/14/2022 03:22:33 07/13/19 23 07/14/2022 CBC (INCL UDES DIFF/ PLT) absolute basophils 39 cells /uL 0-200 normal Not Available [address], [address], 07/14/2022 03:22:33 07/13/19 23 07/14/2022 CBC (INCL UDES DIFF/ PLT) neutrophils 56.1 % normal Not Available [address], [address], 07/14/2022 03:22:33 07/13/19 23 07/14/2022 CBC (INCL UDES DIFF/ PLT) lymphocytes 30.5 % normal Not Available [address], [address], 07/14/2022 03:22:33 07/13/19 23 07/14/2022 CBC (INCL UDES DIFF/ PLT) monocytes 7.1 % normal Not Available [facility] [address] [address], [place], [address], 07/14/2022 03:22:33 07/13/19 23 07/14/2022 CBC (INCL UDES DIFF/ PLT) eosinophils 5.3 % normal Not Available [address], [address], 07/14/2022 03:22:33 07/13/19 23 07/14/2022 CBC (INCL UDES DIFF/ PLT) basophils 1.0 % normal Not Available [address], [address], 07/14/2022 03:22:33 07/13/19 23 07/14/2022 COMPR EHENS EVE METAB OLIC PANEL bilirubin, total 0.7 mg/dL 0.2-1. 2 normal Not Available [address], [address], 07/14/2022 03:22:33 07/13/19 23 07/14/2022 COMPR EHENS EVE METAB OLIC PANEL alkaline phosphatase 30 U/L 37-153 low Not Available [address], [address], 07/14/2022 03:22:33 07/13/19 23 07/14/2022 COMPR EHENS EVE METAB OLIC PANEL AST 23 U/L 10-35 normal Not Available [address], [address], 07/14/2022 03:22:33 07/13/19 23 07/14/2022 COMPR EHENS EVE METAB OLIC PANEL ALT 17 U/L 6-29 normal Not Available [address], [address], 07/14/2022 03:22:33 07/13/19 23 07/14/2022 COMPR EHENS EVE METAB OLIC PANEL glucose 82 mg/dL 65-99 normal Fasti ng refer ence inter husam Not Available [address] [address] [place], [address], 07/14/2022 03:22:33 07/13/19 23 07/14/2022 COMPR EHENS EVE METAB OLIC PANEL urea nitrogen (BUN) 21 mg/dL 7-25 normal Not Available [address], [address], 07/14/2022 03:22:33 07/13/19 23 07/14/2022 COMPR EHENS EVE METAB OLIC PANEL creatinine 0.85 mg/dL 0.50-1 .05 normal Not Available [address] [address] [place], [address], 07/14/2022 03:22:33 07/13/19 23 07/14/2022 COMPR EHENS EVE METAB OLIC PANEL eGFR 77 mL/mi n/1.7 3m2 > or = 60 normal The eGFR is based on the CKD-E PI 2020 equat ion. To calcu late the new eGFR from a previ ous Creat inine or Cysta paulie C resul t, go to https ://florina alvarez.felecia duarte/mohit junior s/ kdoqi /gfr% 5Fcal culat or Not Available [address] [address] [place], [address], 07/14/2022 03:22:33 07/13/19 23 07/14/2022 COMPR EHENS EVE METAB OLIC PANEL BUN/creatini ne ratio not applic able (calc ) 6-22 Not Available [address] [address] [place], [address], 07/14/2022 03:22:33 07/13/19 23 07/14/2022 COMPR EHENS EVE METAB OLIC PANEL sodium 139 mmol/ L 135-14 6 normal Not Available [address] [address] [place], [address], 07/14/2022 03:22:33 07/13/19 23 07/14/2022 COMPR EHENS EVE METAB OLIC PANEL potassium 4.1 mmol/ L 3.5-5. 3 normal Not Available [address], [address], 07/14/2022 03:22:33 07/13/19 23 07/14/2022 COMPR EHENS EVE METAB OLIC PANEL chloride 102 mmol/ L 98-110 normal Not Available [address], [address], 07/14/2022 03:22:33 07/13/19 23 07/14/2022 COMPR EHENS EVE METAB OLIC PANEL carbon dioxide 34 mmol/ L 20-32 high Not Available [address], [address], 07/14/2022 03:22:33 07/13/19 23 07/14/2022 COMPR EHENS EVE METAB OLIC PANEL calcium 9.6 mg/dL 8.6-10 .4 normal Not Available [address], [address], 07/14/2022 03:22:33 07/13/19 23 07/14/2022 COMPR EHENS EVE METAB OLIC PANEL protein, total 7.0 g/dL 6.1-8. 1 normal Not Available [address], [address], 07/14/2022 03:22:33 07/13/19 23 07/14/2022 COMPR EHENS EVE METAB OLIC PANEL albumin 4.2 g/dL 3.6-5. 1 normal Not Available [address], [address], 07/14/2022 03:22:33 07/13/19 23 07/14/2022 COMPR EHENS EVE METAB OLIC PANEL globulin 2.8 g/dL_ (calc ) 1.9-3. 7 normal Not Available [address], [address], 07/14/2022 03:22:33 07/13/19 23 07/14/2022 COMPR EHENS EVE METAB OLIC PANEL albumin/glob ulin ratio 1.5 (calc ) 1.0-2. 5 normal Not Available [address], [address], 07/14/2022 03:22:33 07/13/19 23 07/14/2022 LIPID PANEL , STAND LILY cholesterol, total 259 mg/dL <200 high Not Available [address], [address], 07/14/2022 03:22:32 07/13/19 23 07/14/2022 LIPID PANEL , STAND LILY HDL cholesterol 60 mg/dL > or = 50 normal Not Available [address], [address], 07/14/2022 03:22:32 07/13/19 23 07/14/2022 LIPID PANEL , STAND LILY triglyceride s 93 mg/dL <150 normal Not Available [address], [address], 07/14/2022 03:22:32 07/13/19 23 07/14/2022 LIPID PANEL , STAND LILY LDL-choleste rol 178 mg/dL _(braden c) high Refer ence range : <100 Addi able range <100 mg/dL for prima ry preve ntion ; <70 mg/dL for patie nts with CHD or diabe tic patie nts with > or = 2 CHD risk facto rs. LDL-C is now calcu lated using the Orquidea n-Hop kins calcu rhonda n, which is a valid ated novel metho d provi trinidad begum r accur acy than the Fried estrada equat ion in the estim ation of LDL-C . Orquidea RAMÍREZ et al. MARIZA. 2013; 310(1 9): 2061- 2068 (http ://ed ucati on.Kay mathew [employer]. com/f aq/FA Q164) Not Available [address] [address] [place], [address], 07/14/2022 03:22:32 07/13/19 23 07/14/2022 LIPID PANEL , STAND LILY chol/HDLC ratio 4.3 (calc ) <5.0 normal Not Available [address] [address] [address] , [place], [address], 07/14/2022 03:22:32 07/13/19 23 07/14/2022 LIPID PANEL , STAND LILY non HDL cholesterol 199 mg/dL _(braden c) <130 high For patie nts with diabe derrick plus 1 major ASCVD risk facto r, treat ing to a non-H DL-C goal of <100 mg/dL (LDL- C of <70 mg/dL ) is consi casid a kanu fraireo n. Not Available [address], [address], 07/14/2022 03:22:32 10/20/19 23 10/19/2022 LIPID PANEL , STAND LILY cholesterol, total 183 mg/dL <200 normal Not Available [address] [address] [place], [address], 10/19/2022 17:21:10 10/20/19 23 10/19/2022 LIPID PANEL , STAND LILY HDL cholesterol 62 mg/dL > or = 50 normal Not Available [address] [address] [place], [address], 10/19/2022 17:21:10 10/20/19 23 10/19/2022 LIPID PANEL , STAND LILY triglyceride s 73 mg/dL <150 normal Not Available [address] [address] [place], [address], 10/19/2022 17:21:10 10/20/19 23 10/19/2022 LIPID PANEL , STAND LILY LDL-choleste rol 105 mg/dL _(braden c) high Refer ence range : <100 Addi able range <100 mg/dL for prima ry preve ntion ; <70 mg/dL for patie nts with CHD or diabe tic patie nts with > or = 2 CHD risk facto rs. LDL-C is now calcu lated using the Orquidea n-Hop kins calcu rhonda n, which is a valid ated novel metho d provi ding shy r accur acy than the Fried estrada equat ion in the estim ation of LDL-C . Orquidea soto SS et al. MARIZA. 2013; 310(1 9): 2061- 206 (http ://ed ucati on.Qu belindaLightonus.com. com/f aq/FA Q164) Not Available [facility] [address] [place], [address], 10/19/2022 17:21:10 10/20/19 23 10/19/2022 LIPID PANEL , STAND LILY chol/HDLC ratio 3.0 (calc ) <5.0 normal Not Available [facility] [address] [place], [address], 10/19/2022 17:21:10 10/20/19 23 10/19/2022 LIPID PANEL , STAND LILY non HDL cholesterol 121 mg/dL _(braden c) <130 normal For patie nts with diabe derrick plus 1 major ASCVD risk facto r, treat ing to a non-H DL-C goal of <100 mg/dL (LDL- C of <70 mg/dL ) is consphillip fraireo n. Not Available [facility] [address] [place], [address], 10/19/2022 17:21:10 02/21/20 21 02/20/2021 elect maria esther fan am No observ ation record ed. [id number] Not Available 08/04/2022 09:34:08 03/02/20 21 US, abdom en, limit ed [facility] [address] [place] [address] [phone] Asim t Name: CHET CHARLES Access ion #: [id number] Sex: F : 1960 4 Locati on: RA2 Attend ing Physic esteban: JERMAINE MAHONEY Orderi ng Physic esteban: JERMAINE MAHONEY Exam Date: 7:50 AM Exam Name: US ABD/LT D/ORG/ UQ/GB Admitt ing Diagno sis(es ): RADIOL OGY REPORT - FINAL EXAM: US ABD/LT D/ORG/ UQ/GB HISTOR Y: gallbl adder polyp COMPAR HONORIO: None. TECHNI QUE: Right upper quadra nt ultras ound was perfor med. FINDIN GS: No gallst ones, gallbl adder wall thicke adela, or perich olecys tic free fluid. The patien t was not tender to transd ucer pressu re over the gallbl adder. A polyp measur ing 4 mm is seen in the gallbl adder wall. No intrah epatic biliar y ductal dilata tion or liver mass. Howeve r a cyst is seen in the left lobe of the liver measur ing 3.3 x 2.3 x 3.1 cm. The liver is echoge megan consis tent with fatty infilt ration . There is hepato petal portal venous color Page 1 of 2 [facility] Asim t Name: CHET CHARLES Access ion #: [id number] Sex: F : 1960 4 Exam Date: 7:50 AM Exam Name: US ABD/LT D/ORG/ UQ/GB Admitt ing Diagno sis(es ): Dopple r flow. The common duct measur es 3.9 mm in diamet er. The partia lly visual ized pancre as is unrema rkable . The right kidney measur es 10.8 x 4.8 x 5.7 cm in length and is normal in appear ance with the except ion of mild centra l hydron ephros is. The intrah epatic portio n of the IVC is patent . No upper abdomi nal aortic ectasi a. IMPRES TORRES: Fatty infilt ration of the liver. Simple left lobe hepati c cyst. Gallbl adder polyp. Mild hydron ephros is of the right kidney . Create d and electr onical ly signed by: Freddie James ch, DO Signed Date: 8:36 AM (CT) Dictat ed by: Freddie James ch, DO DD: 8:36 AM (CT) DT: 8:36 AM (CT) Page 2 of 2 [id number] [facility] (Imaging) [address] [place], [address], 08/04/2022 09:34:08 04/13/20 21 US, abdom en, limit ed [facility] [address] [place] [address] [phone] Patien t Name: CHET CHARLES ion #: [id number] Sex: F : 1960 4 Locati on: RA2 Attend ing Physic esteban: JERMAINE MAHONEY Orderi Physic esteban: JERMAINE MAHONEY Exam Date: 7:50 AM Exam Name: US ABD/LT D/ORG/ UQ/GB Admitt ing Diagno sis(es ): RADIOL OGY REPORT - FINAL EXAM: US ABD/LT D/ORG/ UQ/GB HISTOR Y: gallbl adder polyp COMPAR HONORIO: None. TECHNI QUE: Right upper quadra nt ultras ound was perfor med. FINDIN GS: No gallst ones, gallbl adder wall thicke adela, or perich olecys tic free fluid. The patien t was not tender to transd ucer pressu re over the gallbl adder. A polyp measur ing 4 mm is seen in the gallbl adder wall. No intrah epatic biliar y ductal dilata tion or liver mass. Howeve r a cyst is seen in the left lobe of the liver measur ing 3.3 x 2.3 x 3.1 cm. The liver is echoge megan consis tent with fatty infilt ration . There is hepato petal portal venous color Page 1 of 2 [facility] Patien t Name: CHET CHARLES Access ion #: [id number] Sex: F : 1960 4 Exam Date: 7:50 AM Exam Name: US ABD/LT D/ORG/ UQ/GB Admitt ing Diagno sis(es ): Dopple r flow. The common duct measur es 3.9 mm in diamet er. The partia lly visual ized pancre as is unrema rkable . The right kidney measur es 10.8 x 4.8 x 5.7 cm in length and is normal in appear ance with the except ion of mild centra l hydron ephros is. The intrah epatic portio n of the IVC is patent . No upper abdomi nal aortic ectasi a. IMPRES TORRES: Fatty infilt ration of the liver. Simple left lobe hepati c cyst. Gallbl adder polyp. Mild hydron ephros is of the right kidney . Create d and electr onical ly signed by: Freddie James ch, DO Signed Date: 8:36 AM (CT) Dictat ed by: Freddie James ch, DO DD: 8:36 AM (CT) DT: 8:36 AM (CT) Page 2 of 2 [id number] [facility] (Imaging) [address] [place], [address], 08/04/2022 09:34:08 07/13/19 22 07/11/2021 MAMMO , kathy chapman, bilat eral No observ ation record ed. [id number], [place], [address], 08/04/2022 09:34:08 09/08/19 23 09/07/2022 MAMMO , scree adela, bilat eral No observ ation record ed. [email or web address] [facility] [address], [place], [address], 09/07/2022 21:29:26 09/09/19 23 09/07/2022 DEXA No observ ation record ed. [email or web address] [facility] [address], [place], [address], 09/08/2022 07:56:05 Result Notes None recorded. Problems Name Problem SNOMED Code Status Onset Date Resolution Date Notes Provider Name and Address Organization Details Recorded Time History of total knee arthroplas ty 0536833807321 Active 2020 Not Available [facility] 3 09:29:49 Deviated nasal septum 995792873 Active 2016 Not Available [facility] 3 09:29:49 Central abdominal pain 133957000 Active Not Available [facility] 3 09:29:49 Body mass index 25-29 - overweight 218240240 Active 2016 Not Available [facility] 3 09:29:49 Insomnia 028710770 Active 2016 Not Available [facility] 3 09:29:49 Polyp of gallbladde r 574900609 Active 2020 Not Available [facility] 3 09:29:49 Fibromyalg ia 222331761 Active 2020 Not Available [facility] 3 09:29:49 Spasm of back muscles 155140010 Active Not Available [facility] 3 09:29:49 Headache 66493548 Active Not Available [facility] 3 09:29:49 Weight increased 721643922 Active Not Available [facility] 3 09:29:49 Biliary sludge 02766445 Active 2020 Not Available [facility] 3 09:29:49 Toothache 46352719 Active Not Available [facility] 3 09:29:50 Thoracic back pain 535186717 Active 2016 Not Available [facility] 3 09:29:50 Osteopenia 712531948 Active 2018 Not Available [facility] 3 09:29:50 Vitamin D deficiency 20535222 Active Not Available [facility] 3 09:29:50 Multiple joint pain 07053920 Active 2020 Not Available [facility] 3 09:29:50 Strain of neck muscle 361371352 Active 2016 Not Available [facility] 3 09:29:50 Osteoarthr itis 895560825 Active 2016 Not Available [facility] 3 09:29:50 Eczema 97903792 Active Not Available [facility] 3 09:29:50 Herpes zoster 0956394 Active 2017 Not Available [facility] 3 09:29:50 Hyperlipid emia 79423937 Active 2020 Not Available [facility] 3 09:29:50 Essential hypertensi on 37924469 Active 2020 Not Available [facility] 3 09:29:50 Allergic rhinitis 18082290 Active Not Available [facility] 3 09:29:50 Urinary tract infectious disease 36298454 Active Not Available [facility] 3 09:29:50 Muscle pain 81856387 Active 2019 Not Available [facility] 3 09:29:51 Epigastric pain 59177834 Active Not Available [facility] 3 09:29:51 Skin lesion 04534219 Active 2020 Not Available [facility] 3 09:29:51 Low back pain 223969145 Active 2022 Ashlee Mahoney NP [address], [facility] [address], [place], [address] , [facility] 3 12:57:45 Problem Notes None recorded. Procedures Surgical History Date Name Laterality Status Provider Name and Address Organization Details Recorded Time 09/08/19 23 Most Recent Bone Density completed Ashlee Mahoney NP [address], [address], [place], [address], [facility] 09/08/2022 07:55:46 03/16/20 21 Knee Replacement completed Not Available [facility] 08/04/2022 09:27:02 10/18/19 21 Date of Last Colonoscopy completed Not Available [facility] 08/04/2022 09:27:01 06/16/19 21 Knee Replacement completed Not Available [facility] 08/04/2022 09:27:02 Imaging Results Imaging Date Name Status LastModified by Organization Details LastModified Time 02/20/2021 electrocardiogram completed [id number]. [id number] Information not available 08/04/2022 09:34:08 03/02/2021 US, abdomen, limited completed [id number] [facility] (Imaging) [address] [place], [address], 08/04/2022 09:34:08 04/13/2021 US, abdomen, limited completed [id number] [facility] (Imaging) [address] [place], [address], 08/04/2022 09:34:08 07/11/2021 MAMMO, screening, bilateral completed [id number], [address], 08/04/2022 09:34:08 09/07/2022 MAMMO, screening, bilateral completed [email or web address] [place] [address], [address], 09/07/2022 21:29:26 09/07/2022 DEXA completed [address], [address], 09/08/2022 07:56:05 Procedure Notes None recorded. Medical Equipment None Reported. Medications Name Sig Start Date Stop Date Status Note LastModified by Organization Details LastModified Time Singulair 10 mg tablet Take 1 tablet every day by oral route for 90 days. 04/08 completed Not Available Not Available Not Available celecoxib 200 mg capsule TAKE 1 CAPSULE BY MOUTH TWICE A DAY active Not Available Not Available No t Available amoxicill in 500 mg capsule TAKE 4 CAPSULES EVERY DAY BY ORAL ROUTE FOR 1 DAY. active Not Available Not Available No t Available desoximet asone 0.05 % topical cream APPLY A THIN LAYER TO THE AFFECTED AREA(S) BY TOPICAL ROUTE 2 TIMES PER DAY ; RUB IN GENTLY AND COMPLETE LY 05/15 completed Not Available Not Available Not Available azithromy emily 250 mg tablet TAKE 2 TABLETS (500 MG) BY ORAL ROUTE ONCE DAILY FOR 1 DAY THEN 1 TABLET (250 MG) BY ORAL ROUTE ONCE DAILY FOR 4 DAYS 05/15 completed Not Available Not Available Not Available ibuprofen 800 mg tablet Take 1 tablet 3 times a day by oral route. 10/08 completed Not Available Not Available Not Available ofloxacin 0.3 % eye drops APPLY 1 DROP 3 TIMES A DAY STARTING 2 DAYS BEFORE SURGERY, CONTINUE FOR 1 WEEK AFTER active Not Available Not Available No t Available benzonata te 200 mg capsule Take 1 capsule 3 times a day by oral route. active Not Available Not Available No t Available valacyclo vir 1 gram tablet Take 1 tablet 3 times a day by oral route as directed for 7 days. active Not Available Not Available No t Available hydrocodo ne 5 mg-acetam inophen 325 mg tablet TAKE 1 (ONE) TABLET BY MOUTH EVERY 6 HOURS NEEDED FOR PAIN 04/23 completed knee surgery left Not Available Not Available Not Available meloxicam 15 mg tablet Take 1 tablet every day by oral route. 08/01 completed Not Available Not Available Not Available prednison e 20 mg tablet Take 1 tablet every day by oral route for 7 days. active Not Available Not Available No t Available Maxidex 0.1 % eye drops,eliezer pension 10/22 completed Not Available Not Available Not Available clobetaso l 0.05 % topical cream APPLY TO AFFECTED AREAS TWICE DAILY FOR 2 TO 3 WEEKS 03/10 completed Not Available Not Available Not Available penicilli n V potassium 500 mg tablet Take 1 tablet every 8 hours by oral route for 10 days. 07/02 completed Not Available Not Available Not Available acyclovir 400 mg tablet 10/08 completed Not Available Not Available Not Available hydrocodo ne 10 mg-acetam inophen 325 mg tablet 07/20 completed from ortho Not Available Not Available Not Available triamcino lone acetonide 0.1 % topical cream 07/20 completed Not Available Not Available Not Available acyclovir 800 mg tablet TAKE ONE TABLET BY MOUTH ONCE A DAY active Not Available Not Available No t Available ondansetr on 8 mg disintegr ating tablet Place 1 tablet twice a day by translin gual route as needed. active Not Available Not Available No t Available ketorolac 0.5 % eye drops active Not Available Not Available Not Available prednisol one acetate 1 % eye drops,eliezer pension INSTILL ONE DROP INTO THE RIGHT EYE ONCE TO TWICE A DAY active Not Available Not Available No t Available methocarb lashell 750 mg tablet TAKE 1 TABLET BY MOUTH EVERY 12 HOURS NEEDED 07/20 completed Not Available Not Available Not Available Robaxin 500 mg tablet Take 1 tablet 3 times a day by oral route as needed for 30 days. 07/20 completed Not Available Not Available Not Available amitripty line 10 mg tablet TAKE 1 TABLET BY MOUTH EVERYDAY AT BEDTIME 2022 active Not Available Not Available Not Avai lable Cipro 500 mg tablet Take 1 tablet every 12 hours by oral route for 5 days. 04/08 completed Not Available Not Available Not Available diclofena c sodium 75 mg tablet,de layed release 07/04 completed Not Available Not Available Not Available zinc 50 mg tablet Take by oral route. 03/10 completed Not Available Not Available Not Available lisinopri l 5 mg tablet TAKE 1 TABLET BY MOUTH EVERY DAY active Not Available Not Available No t Available lovastati n 20 mg tablet TAKE 1 TABLET BY MOUTH EVERY DAY active Not Available Not Available No t Available estradiol 0.01% (0.1 mg/gram) vaginal cream INSERT 2 GRAM VAGINALL Y DAILY active Not Available Not Available No t Available methylpre dnisolone 4 mg tablets in a dose pack TAKE 6 TABLETS ON DAY 1 DIRECTED ON PACKAGE AND DECREASE BY 1 TAB EACH DAY FOR A TOTAL OF 6 DAYS active Not Available Not Available No t Available Cipro 250 mg tablet Take 1 tablet twice a day by oral route for 3 days. 06/28 completed Not Available Not Available Not Available magnesium 200 mg tablet Take by oral route. 2019 active Not Available Not Available Not Avai lable moxifloxa emily 0.5 % eye drops INSTILL 1 DROP INTO RIGHT EYE 4 TIMES A DAY 07/20 completed Not Available Not Available Not Available duloxetin e 30 mg capsule,d elayed release TAKE 1 CAPSULE BY MOUTH EVERY DAY 07/20 completed Not Available Not Available Not Available Vitamin D3 03/10 completed Not Available Not Available Not Available brimonidi ne 0.2 %-timolol 0.5 % eye drops INSTILL ONE DROP TWICE DAILY RIGHT EYE active Not Available Not Available No t Available Zirgan 0.15 % eye gel APPLY 1 DROP IN THE RIGHT EYE EVERY 2 HOURS 10/22 completed Not Available Not Available Not Available Probiotic 2019 active Not Available Not Available Not Avai lable Belviq 10 mg tablet Take 1 tablet twice a day by oral route for 15 days. 05/25 completed Not Available Not Available Not Available Flonase Allergy Relief 50 mcg/actua tion nasal spray,eliezer pension Imperial 1 spray every day by intranas al route. 08/01 completed Not Available Not Available Not Available esomepraz ole magnesium 20 mg tablet,de layed release Take by oral route. 07/20 completed Not Available Not Available Not Available Citracal- D3 Maximum Plus 2019 active Not Available Not Available Not Avai tamiko Vitals Date Recorded Body mass index (BMI) Body height Oxygen saturation Oxygen saturation in Arterial blood by Pulse oximetry Heart rate Body temperature Body weight Systolic blood pressure Diastolic blood pressure Provider Name and Address Organization Details Last Updated DateTime 1 26.5 kg/m2 172.72 cm 99 % 99 % 72 /min 98 [degF] 02048.0 7 g 118 mm[Hg] 72 mm[Hg] Not Available [facility] 3 09:27:13 Date Recorded Body mass index (BMI) Body height Oxygen saturation Oxygen saturation in Arterial blood by Pulse oximetry Heart rate Body temperature Body weight Systolic blood pressure Diastolic blood pressure Provider Name and Address Organization Details Last Updated DateTime 1 27.7 kg/m2 172.72 cm 97 % 97 % 88 /min 97.4 [degF] 65790.8 1 g 122 mm[Hg] 78 mm[Hg] Not Available [facility] 3 09:27:13 Date Recorded Body mass index (BMI) Body height Oxygen saturation Oxygen saturation in Arterial blood by Pulse oximetry Heart rate Body temperature Body weight Systolic blood pressure Diastolic blood pressure Provider Name and Address Organization Details Last Updated DateTime 2 22.6 kg/m2 172.72 cm 99 % 99 % 82 /min 98.5 [degF] 78019.4 7 g 132 mm[Hg] 80 mm[Hg] Not Available [facility] 3 09:27:13 Date Recorded Body mass index (BMI) Body height Oxygen saturation Oxygen saturation in Arterial blood by Pulse oximetry Heart rate Respiratory rate Body temperature Body weight Systolic blood pressure Diastolic blood pressure Provider Name and Address Organization Details Last Updated DateTime 3 24.4 kg/m2 172.72 cm 97 % 97 % 69 /min 16 /min 97.6 [degF] 96204.5 g 127 mm[Hg] 82 mm[Hg] Not Available [facility] 3 09:27:13 Date Recorded Body height Body temperature Heart rate Respiratory rate Oxygen saturation Oxygen saturation in Arterial blood by Pulse oximetry Systolic blood pressure Diastolic blood pressure Provider Name and Address Organization Details Last Updated DateTime 3 172.72 cm 96.6 [degF] 78 /min 16 /min 99 % 99 % 122 mm[Hg] 78 mm[Hg] [facility]aljit [facility] 3 14:04:49 Social History Question Answer Notes LastModified by Organizat ion Details LastModified Time Tobacco Smoking Status Never Smoker Not Available [facility] 08/04/2022 09:26:36 Do You Have An Advance Directive? Yes [id number] Information not available 08/04/2022 What Is Your Level Of Alcohol Consumption? None [id number] Information not available 08/04/2022 What Is Your Level Of Caffeine Consumption? Occasional [id number].[id number] 8631 Information not available 08/04/2022 What Is Your Code Status? Full Code [id number] Information not available 08/04/2022 What Type Of Diet Are You Following? REGULAR MIGRATION.[id number] Information not available 08/04/2022 What Is The Highest Grade Or Level Of School You Have Completed Or The Highest Degree You Have Received? [id number] MIGRATION.[id number] 5976 Information not available 08/04/2022 Have There Been Any Changes To Your Family Or Social Situation? No MIGRATION.[id number] 0507 Information not available 08/04/2022 What Is The Fluoride Status Of Your Home? Unknown MIGRATION.[id number] 6902 Information not available 08/04/2022 Do You Use Insect Repellent Routinely? Yes MIGRATION.[id number] 1289 Information not available 08/04/2022 Where Do You Live? [place]LevelHouse MIGRATION.[id number] 6924 Information not available 08/04/2022 Do You Have A Medical Power Of Physician Chief Of Pathology? Yes MIGRATION.850015 3160 Information not available 08/04/2022 Do You Have Any Pets? Yes MIGRATION.771584 7668 Information not available 08/04/2022 What Is Your Relationship Status? MIGRATION.048006 0931 Information not available 08/04/2022 Do You Use Your Seat Belt Or Car Seat Routinely? Yes MIGRATION.980176 1231 Information not available 08/04/2022 Do You Have Smoke And Carbon Monoxide Detectors In Your Home? Yes MIGRATION.443275 7042 Information not available 08/04/2022 Are You Passively Exposed To Smoke? No MIGRATION.110630 2045 Information not available 08/04/2022 Are There Any Smokers In Your House? No MIGRATION.003405 0202 Information not available 08/04/2022 Do You Participate In Social Media? No MIGRATION.456201 1687 Information not available 08/04/2022 Do You Feel Stressed (tense, Restless, Nervous, Or Anxious, Or Unable To Sleep At Night)? [id number] MIGRATION.880309 2843 Information not available 08/04/2022 Do You Use Sunscreen Routinely? Yes MIGRATION.157249 1585 Information not available 08/04/2022 Are You Currently In School? No MIGRATION.572478 3283 Information not available 08/04/2022 Do You Have Any Dietary Restrictions? No MIGRATION.387835 9073 Information not available 08/04/2022 Sex: Female Functional Status Question Answer Note LastModified by Organizat ion Details LastModified Time What is your exercise level? Occasional [id number] 26 Information not available 08/04/2022 Mental Status None recorded. Family History Relationship Description Onset Age of this Age Resolved Age Notes LastModified by Organization Details LastModified Time Maternal Aunt Hyperlipidem ia [id number] Not available 08/04/2022 09:27:02 Medical History Condition Response BLINDNESS N RHEUMATIC FEVER N KIDNEY STONES N BLADDER PROBLEMS N MRSA N OTHER # 1 N POLIO N LUNG DISEASE/DISORDER N RADIATION / CHEMOTHERAPY N COPD N Other # 2 N BLOOD DISEASES N SURGERY N EAR OR HEARING PROBLEMS N MUMPS N BOWEL PROBLEMS N FEMALE PROBLEMS / INFECTIONS N DEPRESSION (INCLUDING POST ) N STROKE/TIA N THYROID DISEASE N ULCERS N BENIGN PROSTATIC HYPERPLASIA N MEASLES N CERVICALGIA N TB SKIN TEST N MYOCARDIAL INFARCTION N PARAPELGIA N OBESITY N GERD/NAUSEA N ANEURYSM N URINARY/BLADDER/KIDNEY PROBLEMS N CORONARY ARTERY DISEASE (CAD) N MENIERE'S DISEASE N ADDICTION CONCERNS N ENDOMETRIOSIS N USE OF BLOOD THINNERS N SKIN PROBLEMS N EMPHYSEMA N GASTROINTESTINAL DISORDER N MUSCLE,JOINT OR BONE PROBLEMS N GASTROINTESTINAL BLEEDING N BLOOD CLOTS N ASTHMA N CATARACTS N ERECTILE DYSFUNCTION N GI PROBLEMS N CHF N Low Testosterone N NEUROPATHY N INFERTILITY N AIDS/HIV N FRACTURES N CHEMOTHERAPY / RADIATION N VISION/EYE PROBLEMS N LIVER DISEASE N MALE HYPOGONADISM N HYPERTENSION N TOURETTE'S N ANXIETY DISORDER N BLOOD TRANSFUSION N ANEMIA/BLOOD DISORDER N CHRONIC EAR INFECTIONS N BRONCHITIS N TUBERCULOSIS N GLAUCOMA N FOOT PROBLEM N DIVERTICULITIS N CHICKENPOX N SLEEP APNEA N ALLERGIES/HAYFEVER N INFECTIOUS DISEASE N HEART ARRHYTHMIA N PROSTATE N INSOMNIA N HIGH CHOLESTEROL / HYPERLIPIDEMIA N HYPERTHYROIDISM N EYE PROBLEMS N EATING DISORDER N EDEMA N CHRONIC PAIN SYNDROME N CAROTID BLOCKAGE N CONSTIPATION N BACK / NECK PROBLEMS N HAVE YOU BEEN HOSPITALIZED OR SEEN IN [facility] IN THE PAST YEAR ? N ATHEROSCLEROSIS N BREAST PROBLEMS N DIALYSIS N ECZEMA N FIBROMYALGIA N OSTEOPOROSIS N ARTHRITIS N NO SIGNIFICANT PAST MEDICAL HISTORY N APPENDICITIS N DIABETES, TYPE N BAD TEETH N HEARTBURN / REFLUX N ADD/ADHD N AUTISM SPECTRUM DISORDER (ASD) N HEPATITIS / LIVER DISEASE N PULMONARY DISEASE N GOUT N SLEEP DISORDER N ALZHEIMER'S DISEASE N PAIN N HERPES N DEMENTIA N HEADACHES/MIGRAINES N SEIZURES/EPILEPSY N VASCULAR DISEASE N PACEMAKER N DIZZINESS N HEART DISEASE/HEART PROBLEMS N KIDNEY DISEASE N DEVELOPMENTAL OR BEHAVIORAL DISORDERS N MULTIPLE SCLEROSIS N SCARLET FEVER N MENTAL DISORDER/ILLNESS N CARDIAC ARRHYTHMIA N CANCER: SPECIFY N PNEUMONIA N ATRIAL FIBRILLATION N Gall Stones N PULMONARY EMBOLISM N AUTOIMMUNE DISEASE N Gynecological History Statement/Question Response Date of Last Mammogram 09/07/2022 Date of Last Colonoscopy 10/17/2020 Most Recent Bone Density 09/07/2022 Obstetrics History GPAL:G 0 P 0 0 0 0 Immunizations Vaccine Type Date Status Note Provider Nam e and Address Organization Details Recorded Time Influenza, split virus, quadrivalent, PF 3 completed Ashlee Mahoney NP [address] [facility], [place], [address], [facility] [employer] 04/14/2023 16:33:25 SARS-COV-2 (COVID-19) vaccine, UNSPECIFIED 1 completed Not Available [facility] 08/04/2022 09:33:49 SARS-COV-2 (COVID-19) vaccine, UNSPECIFIED 0 completed Not Available [facility] 08/04/2022 09:33:49 Influenza, split virus, quadrivalent, preservative 9 completed Not Available [facility] 08/04/2022 09:33:49 Influenza, split virus, quadrivalent, preservative 7 completed Not Available [facility] 08/04/2022 09:33:49 Influenza, split virus, quadrivalent, PF 2 completed Not Available [facility] 08/04/2022 09:33:49 Influenza, split virus, quadrivalent, PF 1 completed Not Available [facility] 08/04/2022 09:33:49 Past Encounters Encounter ID Performer Location Encounter Start Date Encounter Closed Date Diagnosis/Indication Diagnosis SNOMED-CT Code Diagnosis ICD10 Code Diagnosis Note [id number] [address] [address] 1 10/08/2020 00:00:00 10/08/2020 18:11:[id number] [address] 1 02/17/2021 00:00:00 02/17/2021 11:44:[id number] [address] 1 04/23/2021 00:00:00 04/23/2021 12:58:[id number] [address] 03/10/2022 00:00:00 03/10/2022 11:39:[id number] [address] 1 07/20/2022 00:00:00 07/20/2022 11:45:59 [id number] Ashlee Mahoney NP [facility] [address] 04/14/2023 13:56:54 04/14/2023 16:52:10 Administration of influenza vaccine 46495189 Z23 flu shot 04/14/23. Adult heal th examination 532423639 Z00.00 Encouraged well balanced meals, active lifestyle, and routine vision and dental appts. Hyperlipidemia 96401737 E78.5 lovastatin 20 mg po daily. Essential hypertension 26045095 I10 Lisinopril 5 mg po daily. Fibromyalgia 681099117 M 79.7 Osteoarthritis 009381903 M19.90 celecoxib 200 mg po bid. Osteopenia 174920097 M85 .80 vit d and calcium. Has apt with [facility] in Jan 2024. Vitamin D deficiency 347 06814 E55.9 Herpes zoster 3193094 B0 2.9 seeing ophthalmol ogist- right eye surgery done. Acyclovir 800 mg po bid. Health Concerns Section Related Observation LastModified by Organization Detai ls LastModified Time None Recorded Concern Status LastModified by Organization Details LastModified Time None Recorded Advance Directives Directive Y: Payers Encounter Date Sequence Insurance Name Policy Number Policy Page Covered Member ID Page Member ID Guarantor Name 04/14/2023 1 [employer] (POS) [id number] Mazin Charles [id number] Chet Charles Notes Date Note Type Note Provider Name and Address Organization Details Recorded Time 04/14/2023 text/html Here for check up, wellness. Some aches and pain still.Feeling better since knee replacements.Sti ll traveling to see mother and care for her in [facility] weekly.Seeing well, has scar right eye. [facility]. Calcium and vit d. Ashlee Mahoney NP [address] [facility], [place], [address], [facility] 04/14/2023 16:44:01 OBGyn Episode No OBEpisode recorded.
--- OUTSIDE RECORDS SUMMARY | 2024-09-26 17:30 | XMS_ITS | Clinical Summary ---
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 (09/09/2016): Psychogenic headache Insomnia 12/26/2014 Overview (09/09/2016): Insomnia Muscle pain 07/18/2014 Abdominal pain 07/18/[address] 05/16/2014 Neck pain 09/20/2013 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 Chest pain 09/20/2013 Joint pain 09/20/2013 Encounter for preventive health examination 03/07 Immunizations Immunization Administration Dates Next Due Influenza, Quadrivalent, Split, Intramuscular Influenza, Trivalent, IM (MDV) 03/10/2014 Surgical History Surgery Date Site/Laterality Comments KNEE ARTHROSCOPY 06/06/2010 - 06/05/2011 Left Arthroscopy knee KNEE ARTHROSCOPY Arthroscopy knee OTHER SURGICAL HISTORY varicose vein removal REPLACEMENT TOTAL KNEE 06/16/2020 COLONOSCOPY 10/17/2020 Medical History Medical History Date Comments Hx Other Medical hemmeroidectomy Hx Other Medical multiple d&c Multiple environmental allergies Allergies, environmental; Comments: DNT 12/26/2014 - Osteoarthritis Osteoarthritis; Comments: DNT 12/26/2014 - Family History Medical History Relation Name Comments Prostate cancer Father Cancer, pros johnson; Broken bones Maternal Grandmother Osteoporosis Mother Hip fracture Neg Hx Scoliosis Neg Hx Relation Name Status Comments Father Maternal Grandmother Alive Mother Social History Tobacco Use Types Packs/Day Years Used Date Smoking Tobacco: Never Smokeless Tobacco: Never Alcohol Use Standard Drinks/Week Comments Yes 0 (1 standard drink = 0.6 oz pur e alcohol) Comments Unknown Sex and Gender Information Value Date Recorded Sex Assigned at Not on file 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 Gender Identity Not on file Sexual Orientation Not on file Obstetrics History Last Filed Vital Signs Vital Sign Reading [...] 01/23/2024 12:46 PM CDT Plan of Treatment Health Maintenance Due Date Last Done Comments Cervical Cancer Screening 1959 Depression Screening 1959 Hepatitis C Screening 1959 Hepatitis B Screening 12/19/1977 Regular Well Visit/Exam 18-64 12/19/1977 Zoster Vaccine (1 of 2) 12/19/2009 DTaP/Tdap/Td Vaccine (2 - Td or Tdap) 06/06/2021 06/06/2011 Breast Cancer Screening-Mammogram 09/08/2023 09/07/2022, 07/13/2021, 06/27/2014, Additional history exists Influenza Vaccine (#1) 2024 , 03/10/2022, 02/17/2021, Additional history exists Colon Cancer Screening-Colonoscopy 10/17/2030 10/17/2020, 09/25/2015, 09/25/2015 Colon Cancer Screening-CT Colonography Discontinued 10/17/2020, 09/25/2015, 09/25/2015 Colon Cancer Screening-DNA Stool Discontinued 10/17/2020, 09/25/2015, 09/25/2015 Colon Cancer Screening-FIT Discontinued 10/17, 09/25/2015, 09/25/2015 Colon Cancer Screening-Sigmoidoscopy Discontinued 10/17/2020, 09/25/2015, 09/25/2015 Pneumococcal vaccine <65 Aged Out No longer eligible based on patient's age to complete this topic Procedures Procedure Name Priority Date/Time Associated Diagnosis [...] Female Attending MD: Pee Leija M.D. Room: [facility] ENDOSCOPY ROOM 2 Note Status: Finalized [...] scope was passed under direct vision. TheColonoscope [id number] was introduced through the anus and advanced to the the cecum, identified by appendiceal orifice and ileocecal valve. The scopewas passed under direct vision. The [id number] was introduced through the and advancedto the. [...] history of colonic polyps CPT copyright 2019 [employer]. All rights reserved. The codes documented in this report are preliminary and upon focused factory manager reviewmay be revised to meet current compliance requirements. Recognized by the [employer] for promoting quality in endoscopy Pee Leija MD ENDOSCOPY PROCEDURES Final Re sult from Last 3 Months or Most Recently Relevant to Health Maintenance Insurance [employer] [place] [employer] [facility] Advance Directives For more information, please contact: [phone] * Full Code (Latest Code Status on File) Date Activated Date Inactivated Comments 10/17/2020 7:57 AM 10/17/2020 2:13 PM * Full Code Date Activated Date Inactivated Comments 10/17/2020 7:56 AM 10/17/2020 7:57 AM Care Teams Gas Technician Relationship Specialty Start Date End Date Ashlee Pereyra NP PCP - General Nurse Practitioner 05/15/19
--- OUTSIDE RECORDS SUMMARY | 2024-09-26 17:30 | XMS_ITS | Clinical Summary ---
Author Organization [email or web address] Address [address] [place] [address] Care Team Providers Care Network Design Architect Name Role Phone Ashlee Pereyra Philomena CADET-PHYSICIAN PRACTICE CONSULTANT Primary Care Provider Source Comments [email or web address],non-owned Affiliates and Associated Physician Practices is amultiple site organization consisting of ambulatory clinics and hospital sitesin [place], [place], [place] and [place]. This disclosure is being madepursuant to the Care Everywhere program and may not contain all information available regarding this patient. Last updated 18.[facility] Allergies No known active allergies Medications * Be aware that medications may not be up to date on this document. Alwaysverify current medications with the patient. amitriptyline (ELAVIL) 10 MG tablet Take 10 mg by mouth at bedtime 0 Active Magnesium 200 MG TABS 400 mg once daily Active methocarbamol (ROBAXIN) 750 MG tablet Take 750 mg by mouth every 12 hours as needed Pt reports 1/2 PRN 0 Active lisinopril (PRINIVIL;ZESTRI L) 5 MG tablet Take 5 mg by mouth at bedtime Active vitamin D3 (CHOLECALCIFEROL ) 25 MCG (1000 UNITS) tablet Take 2,000 Units by mouth once daily Active Zinc 50 MG tablet Take 50 mg by mouth once daily Active multivitamin daily tablet Take 1 tablet by mouth daily with food Active esomeprazole (NEXIUM) 20 MG capsule Take 20 mg by mouth at bedtime Active Probiotic Product (PROBIOTIC-10 PO) Take by mouth once daily Active polyethylene glycol 3350 (MIRALAX) 17 GM/SCOOP powder Take 17 g by mouth at bedtime Active acyclovir (ZOVIRAX) 800 MG tablet 800 mg as directed History of shingles right eye. Using every other day 1 Active prednisoLONE acetate (PRED FORTE) 1 % ophthalmic suspension Currently using one drop at HS every other night 1 Active Calcium Citrate-Vitamin D (CALCIUM CITRATE + D PO) Take by mouth once daily Active Cyanocobalamin (B-12 PO) Take 2,500 mcg by mouth once daily Active HYDROcodone-acet aminophen (NORCO) 10-325 MG tablet Take 0.5 (one-half) tablet to 1 (one) tablet by mouth every 6 hours as needed for Pain 28 tablet 1 Active celecoxib (CeleBREX) 200 MG capsuleIndicatio ns:Aftercare following left knee joint replacement surgery TAKE 1 (ONE) CAPSULE BY MOUTH 2 TIMES DAILY 180 capsule 3 2 Active Active Problems Problem Noted Date Diagnosed Date Polyp of gallbladder 02/17/2021 Skin lesion 02/17/2021 Essential hypertension 10/08/2020 Personal history of colonic polyps 09/11/2020 Overview (03/07/2024): Added automatically from request for surgery [id number] IMO Replacement Utility 03/07/2024 Primary osteoarthritis of right knee 07/29/2020 History of left knee replacement 07/07/2020 Biliary sludge 07/02/2020 Primary osteoarthritis of both knees 03/20/2020 Herpes zoster 05/15/2018 Resolved Problems Problem Noted Date Diagnosed Date Resolved Date Fibromyalgia 06/24/2020 04/06/2021 Social History Tobacco Use Types Packs/Day Years Used Date Smoking Tobacco: Never Smokeless Tobacco: Never Alcohol Use Standard Drinks/Week Comments Yes 0 (1 standard drink = 0.6 oz pur e alcohol) rare Comments Unknown Sex and Gender Information Value Date Recorded Sex Assigned at Not on file 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 Gender Identity Not on file Sexual Orientation Not on file Last Filed Vital Signs Vital Sign Reading Time Taken Comments Blood Pressure 111/67 03/17/2021 8:28 AM CDT Pulse 76 03/17/2021 8:28 AM CDT Temperature 37.1 C (98.7 F) 03/17/2021 7:32 AM CDT Respiratory Rate 18 03/17/2021 7:32 AM CDT Oxygen Saturation 99% 03/17/2021 7:32 AM CDT Inhaled Oxygen Concentration - - Weight 80.3 kg (177 lb) 03/16/2021 5:47 AM CDT Height 172.7 cm (5' 8 ) 03/16/2021 5:47 AM CDT Body Mass Index 26.91 03/16/2021 5:47 AM CDT Plan of Treatment Health Maintenance Due Date Last Done Comments COLOGUARD (AGES 45-75) - COLON CA SCREENING [address] COLONOGRAPHY - COLON CA SCREENING 1960 FIT - COLON CA SCREENING 1960 FLEX SIG - COLON CA SCREENING 1959 LIPID TESTING 1959 PAP SMEAR 1959 HIV SCREENING 12/19/1974 HEPATITIS C SCREENING 12/15/1977 DTAP/TDAP/TD VACCINES (1 - Tdap) 12/19/1978 PNEUMOCOCCAL VACCINE 50+ (1 of 1 - PCV) 12/19/2009 ZOSTER VACCINE (1 of 2) 12/19/2009 MAMMOGRAM 07/04/2016 07/04/2014, 06/07, 04/04/2013, Additional history exists SCREENING FOR DIABETES 03/18/2020 COVID-19 VACCINE ( - season) 2024 DEPRESSION SCREENING 06/06/2024 INFLUENZA VACCINE (Season Ended) 2025 02/17/2021, 03/06/2019, 03/11/2017, Additional history exists COLONOSCOPY - COLON CA SCREENING 10/17/2030 10/17/2020 Colorectal Cancer Screening 10/17/2030 Respiratory Syncytial Virus (RSV) Vaccine Pt: or over 60 yrs (1 - 1-dose 75+ series) 12/19/2034 HEPATITIS B VACCINE Aged Out No longe r eligible based on patient's age to complete this topic HIB VACCINE Aged Out No longer eligi ble based on patient's age to complete this topic HPV VACCINE Aged Out No longer eligi ble based on patient's age to complete this topic MENINGOCOCCAL (Group B) VACCINE SHARED DECISION-MAKING Aged Out No longer eligible based on patient's age to complete this topic MENINGOCOCCAL GROUPS A/C/Y/W VACCINE Aged Out No longer eligible based on patient's age to complete this topic Medical Devices Implanted Type Area Wiring Mechanic Device Identifier Shelf Expiration Date Model / Serial / Lot Cmnt Bone Djo Srg Cblt 40gm Hvisc Strl Implanted:Qty: 1 on 06/16/2020 by Jaison East MD at [facility] Left: Knee [employer] 10/31/2020 600-15-000 / / [id number] Tray Tib 71mm Kn Cocr I Beam Implanted:Qty: 1 on 06/16/2020 by Jaison East MD at [facility] Left: Knee Will [employer] 02/26/2030 [id number] / / [id number] Cmpnt Fem Kn Lt Cr Cmnt Prm Vngrd Intlk 67.5mm Implanted:Qty: 1 on 06/16/2020 by Jaison East MD at [facility] Left: Knee [employer] 06/11/2026 [id number] / / [id number] Cmpnt Ptlr 28mm 1 Pg Wire Ascnt Arcm Kn Implanted:Qty: 1 on 06/16/2020 by Jaison East MD at [facility] Left: Knee [employer] 04/17/2025 [id number] / / [id number] Brng [id number] Vngrd Arcm Kn Ant Stab Implanted:Qty: 1 on 06/16/2020 by Jaison Esat MD at [facility] Left: Knee [employer] 02/05/2025 [id number] / / [id number] Brng [id number] Vngrd Arcm Kn Ant Stab Implanted:Qty: 1 on 03/16/2021 by Jaison East MD at [facility] Right: Knee [employer] 09/08/2025 [id number] / / [id number] Cmnt Bone Djo Srg Cblt 40gm Hvisc Strl Implanted:Qty: 1 on 03/16/2021 by Jaison East MD at [facility] Right: Knee [employer] 07/08/2022 600-15-000 / / [id number] Cmpnt Fem Kn Rt Cr Cmnt Prm Vngrd Intlk Implanted:Qty: 1 on 03/16/2021 by Jaison East MD at [facility] Right: Knee [employer] 10/23/2030 [id number] / / [id number] Cmpnt Ptlr 28mm 1 Pg Wire Ascnt Arcm Kn Implanted:Qty: 1 on 03/16/2021 by Jaison East MD at [facility] Right: Knee [employer] 11/17/2025 [id number] / / [id number] Tray Tib 71mm Kn Cocr I Beam Implanted:Qty: 1 on 03/16/2021 by Jaison East MD at [facility] Right: Knee [employer] 05/28/2030 [id number] / / [id number] Insurance ANTHEM [employer] Advance Directives * Full Code (Latest Code Status on File) Date Activated Date Inactivated Comments 03/16/2021 11:40 AM 03/17/2021 5:19 PM * Full Code Date Activated Date Inactivated Comments 06/16/2020 11:45 AM 06/17/2020 12:38 PM Care Teams Network Design Architect Relationship Specialty Start Date End Date Ashlee Pereyra, DIRECTOR SCHOOL OF NURSING-PHYSICIAN PRACTICE CONSULTANT [address] [place] [phone] PCP - General Nurse Practitioner Family 06/02/20
--- OUTSIDE RECORDS SUMMARY | 2024-09-26 17:30 | XMS_ITS | Clinical Summary ---
Author Organization [facility] Address [address] [place] [address] Phone Care Team Providers Care Distresser Name Role Phone Mateo Culver MD Primary Care Provider [phone] Allergies No known active allergies Medications celecoxib (CELEBREX) 200 mg capsule Take 200 mg by mouth 2 times daily. Active amitriptyline (ELAVIL) 10 mg tablet Take 10 mg by mouth daily at bedtime. Active ERGOCALCIFEROL, VITAMIN D2, (VITAMIN D ORAL) Take by mouth. Active B INFANTIS/B ANI/B KEVIN/B BIFID (PROBIOTIC 4X ORAL) Take by mouth. Active multivitamin (DAILY-EJ) tablet Take 1 Tab by mouth daily. Active Active Problems Problem Noted Date Diagnosed Date Lesion of breast 07/05/2014 Family History Medical History Relation Name Comments Prostate Cancer Father Heart Disease Maternal Grandmother Breast Cancer Neg Hx Ovarian Cancer Neg Hx Uterine Cancer Neg Hx Relation Name Status Comments Father Maternal Grandmother Social History Tobacco Use Types Packs/Day Years Used Date Smoking Tobacco: Never Smokeless Tobacco: Never Tobacco Cessation:Counseling Given: No Alcohol Use Standard Drinks/Week Comments Yes 0 (1 standard drink = 0.6 oz pur e alcohol) rare Comments No Sex and Gender Information Value Date Recorded Sex Assigned at Not on file Legal Sex Female 8:08 AM APPLICATIONS DEVELOPMENT ANALYST Gender Identity Not on file Sexual Orientation Not on file Last Filed Vital Signs Vital Sign Reading Time Taken Comments Blood Pressure 132/92 07/09/2014 11:21 AM APPLICATIONS DEVELOPMENT ANALYST Pulse 84 07/09/2014 11:21 AM APPLICATIONS DEVELOPMENT ANALYST Temperature - - Respiratory Rate - - Oxygen Saturation - - Inhaled Oxygen Concentration - - Weight 71.2 kg (157 lb) 07/09/2014 11:21 AM APPLICATIONS DEVELOPMENT ANALYST Height 172.7 cm (5' 8 ) 07/09/2014 11:21 AM APPLICATIONS DEVELOPMENT ANALYST Body Mass Index 23.87 07/09/2014 11:21 AM APPLICATIONS DEVELOPMENT ANALYST Plan of Treatment Health Maintenance Due Date Last Done Comments DTAP/TDAP/TD VACCINES (1 - Tdap) 12/19/1978 HPV/Cotest (21-29) 12/19/1980 CERVICAL CANCER SCREENING 12/19/1989 HPV/Cotest (30-65) 12/19/1989 PAP SMEAR 12/19/1989 COLORECTAL SCREENING 12/19/2004 Colorectal Cancer Screening 12/19/2004 FIT-DNA Q 3 years 12/19/2004 FIT/FOBT Q 1 year 12/19/2004 Flex Sig/CT Colonography Q 5 years 12/19/2004 ZOSTER VACCINE (1 of 2) 12/19/2009 BREAST CANCER SCREENING 07/04/2015 07/04/19 15, 06/27/2014, 04/04/2013, Additional history exists INFLUENZA VACCINE (#1) 2024 RSV VACCINE (60+ or ) (1 - 1-dose 75+ series) 12/19/2034 Procedures Procedure Name Priority Date/Time Associated Diagnosis Comments MAMMO UNILATERAL DIAG RIGHT Routine 07/04/2014 from Last 3 Months or Most Recently Relevant to Health Maintenance Results * MAMMO UNILATERAL DIAG RIGHT (07/04/2014) Anatomical Region Laterality Modality Breast Right Other Rod Rudolph MD MAMMO ORDERABLES Edited Result - Final from Last 3 Months or Most Recently Relevant to Health Maintenance Insurance [facility] [employer] PPO [phone] Care Teams Distresser Relationship Specialty Start Date End Date Mateo Culver MD [address] [place] [address] PCP - General Internal Medicine 07/09/14
== END 2024-09-26 15:32 | disposition home or self-care (01) ==
LOC: ANHIMG 15:43
PROVIDERS: PCP Nurse Practitioner Family; Visit Provider Obstetrics & Gynecology
DX: Z12.31 Encounter for screening mammogram for malignant neoplasm of breast (principal)
CPT/HCPCS: 77063; 77067

== ENCOUNTER 2024-10-12 09:01 | Outpatient (CLI) | payer OTHER, SELFPAY ==
--- NOTE | ~2024-10-12 | CT_ITS ---
CTA chest Ordering provider: Josh Peres DO History: 63 years Female with . I71.21 - Aneurysm of the ascending aorta, without rupture . Comparison: None. Technique: CT angiogram chest was performed following timed intravenous injection of contrast. Thin s lice axial images and reformatted coronal images were obtained. Three dimensional reformatted images of the chest were also obtained using a [employer] workstation. . Automated exposure control and iterati ve reconstruction technique were employed. The dose-length product was 195.99 mGy-cm. 100 mL Omnipaqu e 350 was given IV. Findings: PULMONARY ARTERIES: No pulmonary embolus. VISUALIZED THORACIC INLET: Normal. MEDIASTINUM: Aorta/coronary arteries: Ascending aorta measures 3.9 cm. Heart/other: The heart is not enlarged. Lymph nodes: No mediastinal or hilar adenopathy. LUNGS: No pulmonary nodules or masses. No infiltrates or effusions. No pneumothorax. Dependent atelectatic c hanges. VISUALIZED UPPER ABDOMEN: Multiple hypodensities in the liver which may be cysts. Ultrasound confirma tion advised. Fullness of the renal pelvis bilaterally more on the left side. Otherwise, the visualiz ed upper abdomen is normal. MUSCULOSKELETAL: Soft tissues: The superficial soft tissues are normal. Bones: Age appropriate degenerative changes of the spine. IMPRESSION: 1. Ascending aorta measures 3.9 cm. No evidence of dissection. 2. No pulmonary embolism. 3. No acute lung pathology seen. 4. Multiple hypodensities in the liver. Further evaluation advised. 5. Bilateral renal pelvis fullness more on the left side. Reviewed, dictated and finalized at location A.
--- OUTSIDE RECORDS SUMMARY | 2024-10-12 09:08 | XMS_ITS | Data Portability ---
Author Organization [facility], Main Office Address [address] [place] [address] Assessment No assessment recorded. Plan of Treatment [...] By Organization Details Last Modified Time 04/14/2023 [id number] FU in 1 year for wellness after 04/15/24 [email or web address] Not available 04/14/2023 16:43:11 Reason for Referral None Reported. Results Created Date Observation Date Name Description Value Unit Range Abnormal Flag Note LastModifiedBy Organization Detail LastModifiedTime 02/18/2002/17/2021 COMPR EHENS EVE METAB OLIC PANEL sodium 140 mmol/ L 137-14 5 Not Available [facility] (Lab) [address] [place], [address], 02/17/2021 21:29:46 02/18/2002/17/2021 COMPR EHENS EVE METAB OLIC PANEL potassium 4.7 mmol/ L 3.5-5. 1 Not Available [facility] (Lab) [address] [place], [address], 02/17/2021 21:29:46 02/18/2002/17/2021 COMPR EHENS EVE METAB OLIC PANEL chloride 104 mmol/ L 98-107 Not Available [facility] (Lab) [address] [place], [address], 02/17/2021 21:29:46 02/18/20 21 02/17/2021 COMPR EHENS EVE METAB OLIC PANEL carbon dioxide 30 mmol/ L 22-30 Not Available [facility] (Lab) [address] [place], [address], 02/17/2021 21:29:46 02/18/20 21 02/17/2021 COMPR EHENS EVE METAB OLIC PANEL agap 10.7 mmol/ L 14-22 low Not Available [facility] (Lab) [address] [place], [address], 02/17/2021 21:29:46 02/18/20 21 02/17/2021 COMPR EHENS EVE METAB OLIC PANEL glucose 85 mg/dL 70-99 Not Available [facility] (Lab) [address] [place], [address], 02/17/2021 21:29:46 02/18/20 21 02/17/2021 COMPR EHENS EVE METAB OLIC PANEL BUN 21 mg/dL 8-19 high Not Available [facility] (Lab) [address] [place], [address], 02/17/2021 21:29:46 02/18/20 21 02/17/2021 COMPR EHENS EVE METAB OLIC PANEL creatinine 0.73 mg/dL 0.66-1 .25 Not Available [facility] (Lab) [address] [place], [address], 02/17/2021 21:29:46 02/18/20 21 02/17/2021 COMPR EHENS EVE METAB OLIC PANEL GFR >60 Refer ence Range : [place] GFR Healt hy Adult : >60 [...] lator can be locat ed on the [facility] websi te: [email or web address] :[email or web address] rg/pr ofess ional s/kdo qi/gf r_cal culat or Not Available [facility] (Lab) [address] [place], [address], 02/17/2021 21:29:46 02/18/20 21 02/17/2021 COMPR EHENS EVE METAB OLIC PANEL alkaline phosphatase 35 U/L 38-126 low Not Available [facility] (Lab) [address] [place], [address], 02/17/2021 21:29:46 02/18/20 21 02/17/2021 COMPR EHENS EVE METAB OLIC PANEL alanine aminotransfe rase 21 U/L 0-35 Not Available [facility] (Lab) [address] [place], [address], 02/17/2021 21:29:46 02/18/20 21 02/17/2021 COMPR EHENS EVE METAB OLIC PANEL aspartate aminotransfe rase 34 U/L 15-37 Not Available [facility] (Lab) [address] [place], [address], 02/17/2021 21:29:46 02/18/20 21 02/17/2021 COMPR EHENS EVE METAB OLIC PANEL bilirubin, total 0.70 mg/dL 0.20-1 .30 Not Available [facility] (Lab) [address] [place], [address], 02/17/2021 21:29:46 02/18/20 21 02/17/2021 COMPR EHENS EVE METAB OLIC PANEL calcium 9.6 mg/dL 8.4-10 .2 Not Available [facility] (Lab) [address] [facility] [place], [address], 02/17/2021 21:29:46 02/18/20 21 02/17/2021 COMPR EHENS EVE METAB OLIC PANEL total protein 7.8 g/dL 6.3-8. 2 Not Available [facility] (Lab) [address] [place], [address], 02/17/2021 21:29:46 02/18/20 21 02/17/2021 COMPR EHENS EVE METAB OLIC PANEL albumin 4.7 g/dL 3.4-5. 0 Not Available [facility] (Lab) [address] [place], [address], 02/17/2021 21:29:46 02/18/20 21 02/17/2021 COMPR EHENS EVE METAB OLIC PANEL globulin 3.1 g/dL 2.6-4. 2 Not Available [facility] (Lab) [address] [place], [address], 02/17/2021 21:29:46 02/18/20 21 02/17/2021 COMPR EHENS EVE METAB OLIC PANEL A/G ratio 1.5 ratio 1.0-2. 0 Not Available [facility] (Lab) [address] [place], [address], 02/17/2021 21:29:46 02/18/20 21 02/17/2021 CBC/C OMPLE TE BLD COUNT W/DIF F white blood cells 3.5 x10'3 /uL 4.2-10 .8 low Not Available [facility] (Lab) [address] [place], [address], 02/17/2021 20:28:08 02/18/20 21 02/17/2021 CBC/C OMPLE TE BLD COUNT W/DIF F red blood cells 4.31 x10'6 /uL 3.80-5 .20 Not Available [facility] (Lab) [address] [facility] [place], [address], 02/17/2021 20:28:08 02/18/20 21 02/17/2021 CBC/C OMPLE TE BLD COUNT W/DIF F hemoglobin 14.0 g/dL 12.0-1 5.6 Not Available [facility] (Lab) [address] [place], [address], 02/17/2021 20:28:08 02/18/20 21 02/17/2021 CBC/C OMPLE TE BLD COUNT W/DIF F hematocrit 42.5 % 35.7-4 5.7 Not Available [facility] (Lab) [address] [facility] [place], [address], 02/17/2021 20:28:08 02/18/20 21 02/17/2021 CBC/C OMPLE TE BLD COUNT W/DIF F mean red cell volume 98.6 fL 82.0-9 9.0 Not Available [facility] (Lab) [address] [place], [address], 02/17/2021 20:28:08 02/18/20 21 02/17/2021 CBC/C OMPLE TE BLD COUNT W/DIF F mean red cell hemoglobin 32.5 pg 27.0-3 3.0 Not Available [facility] (Lab) [address] [place], [address], 02/17/2021 20:28:08 02/18/20 21 02/17/2021 CBC/C OMPLE TE BLD COUNT W/DIF F mean RBC HGB concentratio n 32.9 g/dL 31.0-3 6.0 Not Available [facility] (Lab) [address] [place], [address], 02/17/2021 20:28:08 02/18/20 21 02/17/2021 CBC/C OMPLE TE BLD COUNT W/DIF F red cell distribution width 12.0 % 11.8-1 5.5 Not Available [facility] (Lab) [address] [place], [address], 02/17/2021 20:28:08 02/18/20 21 02/17/2021 CBC/C OMPLE TE BLD COUNT W/DIF F platelets 266 x10'3 /uL 150-40 0 Not Available [facility] (Lab) [address] [place], [address], 02/17/2021 20:28:08 02/18/20 21 02/17/2021 CBC/C OMPLE TE BLD COUNT W/DIF F mean platelet volume 10.0 fL 9.0-12 .4 Not Available [facility] (Lab) [address] [place], [address], 02/17/2021 20:28:08 02/18/20 21 02/17/2021 CBC/C OMPLE TE BLD COUNT W/DIF F neutrophils 50.5 % 39.0-7 2.0 Not Available [facility] (Lab) [address] [place], [address], 02/17/2021 20:28:08 02/18/20 21 02/17/2021 CBC/C OMPLE TE BLD COUNT W/DIF F lymphocytes 34.8 % 16.0-4 7.0 Not Available [facility] (Lab) [address] [place], [address], 02/17/2021 20:28:08 02/18/20 21 02/17/2021 CBC/C OMPLE TE BLD COUNT W/DIF F monocytes 9.6 % 5.0-12 .0 Not Available [facility] (Lab) [address] [place], [address], 02/17/2021 20:28:08 02/18/20 21 02/17/2021 CBC/C OMPLE TE BLD COUNT W/DIF F eosinophils 4.0 % 1.0-7. 0 Not Available [facility] (Lab) [address] [place], [address], 02/17/2021 20:28:08 02/18/20 21 02/17/2021 CBC/C OMPLE TE BLD COUNT W/DIF F basophils 0.8 % 0.0-2. 0 Not Available [facility] (Lab) [address] [place], [address], 02/17/2021 20:28:08 02/18/20 21 02/17/2021 CBC/C OMPLE TE BLD COUNT W/DIF F immature granulocytes 0.3 % 0.00-0 .50 Not Available [facility] (Lab) [address] [place], [address], 02/17/2021 20:28:08 02/18/20 21 02/17/2021 CBC/C OMPLE TE BLD COUNT W/DIF F neutrophils, absolute count 1.78 x10'3 /uL 1.5-8. 0 Not Available [facility] (Lab) [address] [place], [address], 02/17/2021 20:28:08 02/18/20 21 02/17/2021 CBC/C OMPLE TE BLD COUNT W/DIF F lymphocytes, absolute count 1.23 x10'3 /uL 1.07-3 .43 Not Available [facility] (Lab) [address] [place], [address], 02/17/2021 20:28:08 02/18/20 21 02/17/2021 CBC/C OMPLE TE BLD COUNT W/DIF F monocytes, absolute count 0.34 x10'3 /uL 0.29-0 .99 Not Available [facility] (Lab) [address] [place], [address], 02/17/2021 20:28:08 02/18/20 21 02/17/2021 CBC/C OMPLE TE BLD COUNT W/DIF F eosinophils, absolute count 0.14 x10'3 /uL 0.02-0 .53 Not Available [facility] (Lab) [address] [place], [address], 02/17/2021 20:28:08 02/18/20 21 02/17/2021 CBC/C OMPLE TE BLD COUNT W/DIF F basophils, absolute count 0.03 x10'3 /uL 0.01-0 .08 Not Available [facility] (Lab) [address] [place], [address], 02/17/2021 20:28:08 02/18/20 21 02/17/2021 CBC/C OMPLE TE BLD COUNT W/DIF F immature granulocytes ,absolute 0.01 x10'3 /uL 0.00-0 .05 Not Available [facility] (Lab) [address] [place], [address], 02/17/2021 20:28:08 02/18/20 21 02/17/2021 CBC/C OMPLE TE BLD COUNT W/DIF F nucleated red blood cells 0.0 % -0 Not Available [facility] (Lab) [address] [place], [address], 02/17/2021 20:28:08 02/18/20 21 02/17/2021 CBC/C OMPLE TE BLD COUNT W/DIF F NRBC# 0.00 x10'3 /uL Not Available [facility] (Lab) [address] [place], [address], 02/17/2021 20:28:08 05/08/20 21 05/08/2021 FOLAT E, SERUM /PLAS MA folate >20.0 NG/mL 2.76- Not Available [facility] (Lab) [address] [place], [address], 05/08/2021 14:34:33 05/08/20 21 05/08/2021 VITAM IN B12 (DARON PATRICIA ) vb12 828 pg/mL 239-93 1 Not Available [facility] (Lab) [address] [place], [address], 05/08/2021 14:34:28 05/08/20 21 05/08/2021 TSH W/REF PRIYANKA FT4 TSH with reflex free T4 1.510 uIU/m L 0.465- 4.680 Not Available [facility] (Lab) [address] [place], [address], 05/08/2021 14:14:21 05/08/20 21 05/08/2021 VITAM IN D 25-HY DROXY vd25oh 51.8 NG/mL 30-100 Vitam in D Statu s: Defic ient: <20 ng/mL Insuf ficie nt: 20-29 ng/mL Suffi cient : 30-10 0 ng/mL Not Available [facility] (Lab) [address] [place], [address], 05/08/2021 14:13:56 05/08/20 21 05/08/2021 COMPR EHENS EVE METAB OLIC PANEL sodium 140 mmol/ L 137-14 5 Not Available [facility] (Lab) [address] [place], [address], 05/08/2021 13:33:25 05/08/20 21 05/08/2021 COMPR EHENS EVE METAB OLIC PANEL potassium 4.7 mmol/ L 3.5-5. 1 Not Available [facility] (Lab) [address] [place], [address], 05/08/2021 13:33:25 05/08/20 21 05/08/2021 COMPR EHENS EVE METAB OLIC PANEL chloride 102 mmol/ L 98-107 Not Available [facility] (Lab) [address] [place], [address], 05/08/2021 13:33:25 05/08/20 21 05/08/2021 COMPR EHENS EVE METAB OLIC PANEL carbon dioxide 28 mmol/ L 22-30 Not Available [facility] (Lab) [address] [place], [address], 05/08/2021 13:33:25 05/08/20 21 05/08/2021 COMPR EHENS EVE METAB OLIC PANEL agap 14.7 mmol/ L 14-22 Not Available [facility] (Lab) [address] [place], [address], 05/08/2021 13:33:25 05/08/20 21 05/08/2021 COMPR EHENS EVE METAB OLIC PANEL glucose 91 mg/dL 70-99 Not Available [facility] (Lab) [address] [place], [address], 05/08/2021 13:33:25 05/08/20 21 05/08/2021 COMPR EHENS EVE METAB OLIC PANEL BUN 18 mg/dL 8-19 Not Available [facility] (Lab) [address] [place], [address], 05/08/2021 13:33:25 05/08/20 21 05/08/2021 COMPR EHENS EVE METAB OLIC PANEL creatinine 0.76 mg/dL 0.66-1 .25 Not Available [facility] (Lab) [address] [place], [address], 05/08/2021 13:33:25 05/08/20 21 05/08/2021 COMPR EHENS EVE METAB OLIC PANEL GFR >60 Refer ence Range : [place] GFR Healt hy Adult : >60 mL/mi n/1.7 3 m2 Chron ic Kidne y Disea se: 15-60 mL/mi n/1.7 3 m2 Kidne y Failu re: <15/m L/min /1.73 m2 www.n iddk. [facility].g ov The MDRD study equat ion has [...] calcu lator is avail able on the [facility] websi te: https :[email or web address] rg/pr ofess ional s/kdo qi/gf r_cal culat or Not Available [facility] (Lab) [address] [place], [address], 05/08/2021 13:33:25 05/08/20 21 05/08/2021 COMPR EHENS EVE METAB OLIC PANEL alkaline phosphatase 40 U/L 38-126 Not Available [facility] (Lab) [address] [place], [address], 05/08/2021 13:33:25 05/08/20 21 05/08/2021 COMPR EHENS EVE METAB OLIC PANEL alanine aminotransfe rase 22 U/L 0-35 Not Available [facility] (Lab) [address] [place], [address], 05/08/2021 13:33:25 05/08/20 21 05/08/2021 COMPR EHENS EVE METAB OLIC PANEL aspartate aminotransfe rase 38 U/L 15-37 high Not Available [facility] (Lab) [address] [place], [address], 05/08/2021 13:33:25 05/08/20 21 05/08/2021 COMPR EHENS EVE METAB OLIC PANEL bilirubin, total 0.50 mg/dL 0.20-1 .30 Not Available [facility] (Lab) [address] [place], [address], 05/08/2021 13:33:25 05/08/20 21 05/08/2021 COMPR EHENS EVE METAB OLIC PANEL calcium 9.6 mg/dL 8.4-10 .2 Not Available [facility] (Lab) [address] [place], [address], 05/08/2021 13:33:25 05/08/20 21 05/08/2021 COMPR EHENS EVE METAB OLIC PANEL total protein 7.5 g/dL 6.3-8. 2 Not Available [facility] (Lab) [address] [place], [address], 05/08/2021 13:33:25 05/08/20 21 05/08/2021 COMPR EHENS EVE METAB OLIC PANEL albumin 4.4 g/dL 3.4-5. 0 Not Available [facility] (Lab) [address] [place], [address], 05/08/2021 13:33:25 05/08/20 21 05/08/2021 COMPR EHENS EVE METAB OLIC PANEL globulin 3.1 g/dL 2.6-4. 2 Not Available [facility] (Lab) [address] [place], [address], 05/08/2021 13:33:25 05/08/20 21 05/08/2021 COMPR EHENS EVE METAB OLIC PANEL A/G ratio 1.4 ratio 1.0-2. 0 Not Available [facility] (Lab) [address] [place], [address], 05/08/2021 13:33:25 05/08/20 21 05/08/2021 LIPID PANEL cholesterol 237 mg/dL 140-19 9 high NIH GEORGE NSUS RECOM MENDA TION FOR LONNIE STERO L: ADULT CHILD LOW RISK: <200 <170 BORDE RLINE : <200- 239 ----- HIGH RISK: >240 >200 Not Available [facility] (Lab) [address] [place], [address], 05/08/2021 13:33:21 05/08/20 21 05/08/2021 LIPID PANEL triglyceride s 106 mg/dL 0-150 NIH GEORGE NSUS REPOR T RECOM MENDA TION FOR TRIGL YCERI AMMON: ADULT CHILD LOW RISK: <150 ----- BODER LINE: 150-1 99 ----- HIGH RISK: >200 ----- Not Available [facility] (Lab) [address] [place], [address], 05/08/2021 13:33:21 05/08/20 21 05/08/2021 LIPID PANEL HDL cholesterol 61 mg/dL 40- Not Available [facility] (Lab) [address] [place], [address], 05/08/2021 13:33:21 05/08/20 21 05/08/2021 LIPID PANEL [...] WILL NOT BE REPOR CAIN. Not Available [facility] (Lab) [address] [place], [address], 05/08/2021 13:33:21 05/08/20 21 05/08/2021 HEMOG LOBIN A1C HA1C 5.0 % 4.0-6. 0 Diabe derrick Scree adela Crite ralph: <5.7% Consi stent with absen ce of diabe derrick 5.7-6 .4% Consi stent with incre ased risk for diabe derrick (pred iabet es) >OR=6 .5% Consi stent with diabe derrick REFER ENCE: Diabe derrick Care 2015, 39(Patricia ppl.1 ):s13 -s22 Not Available [facility] (Lab) [address] [place], [address], 05/08/2021 13:27:21 05/08/20 21 05/08/2021 CBC/C OMPLE TE BLD COUNT W/DIF F white blood cells 3.4 x10'3 /uL 4.2-10 .8 low Not Available [facility] (Lab) [address] [place], [address], 05/08/2021 12:56:05 05/08/20 21 05/08/2021 CBC/C OMPLE TE BLD COUNT W/DIF F red blood cells 4.16 x10'6 /uL 3.80-5 .20 Not Available [facility] (Lab) [address] [place], [address], 05/08/2021 12:56:05 05/08/20 21 05/08/2021 CBC/C OMPLE TE BLD COUNT W/DIF F hemoglobin 13.4 g/dL 12.0-1 5.6 Not Available [facility] (Lab) [address] [place], [address], 05/08/2021 12:56:05 05/08/20 21 05/08/2021 CBC/C OMPLE TE BLD COUNT W/DIF F hematocrit 41.2 % 35.7-4 5.7 Not Available [facility] (Lab) [address] [place], [address], 05/08/2021 12:56:05 05/08/20 21 05/08/2021 CBC/C OMPLE TE BLD COUNT W/DIF F mean red cell volume 99.0 fL 82.0-9 9.0 Not Available [facility] (Lab) [address] [place], [address], 05/08/2021 12:56:05 05/08/20 21 05/08/2021 CBC/C OMPLE TE BLD COUNT W/DIF F mean red cell hemoglobin 32.2 pg 27.0-3 3.0 Not Available [facility] (Lab) [address] [place], [address], 05/08/2021 12:56:05 05/08/20 21 05/08/2021 CBC/C OMPLE TE BLD COUNT W/DIF F mean RBC HGB concentratio n 32.5 g/dL 31.0-3 6.0 Not Available [facility] (Lab) [address] [place], [address], 05/08/2021 12:56:05 05/08/20 21 05/08/2021 CBC/C OMPLE TE BLD COUNT W/DIF F red cell distribution width 12.1 % 11.8-1 5.5 Not Available [facility] (Lab) [address] [place], [address], 05/08/2021 12:56:05 05/08/20 21 05/08/2021 CBC/C OMPLE TE BLD COUNT W/DIF F platelets 283 x10'3 /uL 150-40 0 Not Available [facility] (Lab) [address] [place], [address], 05/08/2021 12:56:05 05/08/20 21 05/08/2021 CBC/C OMPLE TE BLD COUNT W/DIF F mean platelet volume 9.9 fL 9.0-12 .4 Not Available [facility] (Lab) [address] [place], [address], 05/08/2021 12:56:05 05/08/20 21 05/08/2021 CBC/C OMPLE TE BLD COUNT W/DIF F neutrophils 51.5 % 39.0-7 2.0 Not Available [facility] (Lab) [address] [place], [address], 05/08/2021 12:56:05 05/08/20 21 05/08/2021 CBC/C OMPLE TE BLD COUNT W/DIF F lymphocytes 32.9 % 16.0-4 7.0 Not Available [facility] (Lab) [address] [place], [address], 05/08/2021 12:56:05 05/08/20 21 05/08/2021 CBC/C OMPLE TE BLD COUNT W/DIF F monocytes 8.8 % 5.0-12 .0 Not Available [facility] (Lab) [address] [place], [address], 05/08/2021 12:56:05 05/08/20 21 05/08/2021 CBC/C OMPLE TE BLD COUNT W/DIF F eosinophils 5.6 % 1.0-7. 0 Not Available [facility] (Lab) [address] [place], [address], 05/08/2021 12:56:05 05/08/20 21 05/08/2021 CBC/C OMPLE TE BLD COUNT W/DIF F basophils 1.2 % 0.0-2. 0 Not Available [facility] (Lab) [address] [place], [address], 05/08/2021 12:56:05 05/08/20 21 05/08/2021 CBC/C OMPLE TE BLD COUNT W/DIF F immature granulocytes 0.0 % 0.00-0 .50 Not Available [facility] (Lab) [address] [place], [address], 05/08/2021 12:56:05 05/08/20 21 05/08/2021 CBC/C OMPLE TE BLD COUNT W/DIF F neutrophils, absolute count 1.75 x10'3 /uL 1.5-8. 0 Not Available [facility] (Lab) [address] [place], [address], 05/08/2021 12:56:05 05/08/20 21 05/08/2021 CBC/C OMPLE TE BLD COUNT W/DIF F lymphocytes, absolute count 1.12 x10'3 /uL 1.07-3 .43 Not Available [facility] (Lab) [address] [place], [address], 05/08/2021 12:56:05 05/08/2005/08/2021 CBC/C OMPLE TE BLD COUNT W/DIF F monocytes, absolute count 0.30 x10'3 /uL 0.29-0 .99 Not Available [facility] (Lab) [address] [place], [address], 05/08/2021 12:56:05 05/08/20 21 05/08/2021 CBC/C OMPLE TE BLD COUNT W/DIF F eosinophils, absolute count 0.19 x10'3 /uL 0.02-0 .53 Not Available [facility] (Lab) [address] [place], [address], 05/08/2021 12:56:05 05/08/20 21 05/08/2021 CBC/C OMPLE TE BLD COUNT W/DIF F basophils, absolute count 0.04 x10'3 /uL 0.01-0 .08 Not Available [facility] (Lab) [address] [place], [address], 05/08/2021 12:56:05 05/08/20 21 05/08/2021 CBC/C OMPLE TE BLD COUNT W/DIF F immature granulocytes ,absolute 0.00 x10'3 /uL 0.00-0 .05 Not Available [facility] (Lab) [address] [place], [address], 05/08/2021 12:56:05 05/08/20 21 05/08/2021 CBC/C OMPLE TE BLD COUNT W/DIF F nucleated red blood cells 0.0 % -0 Not Available [facility] (Lab) [address] [place], [address], 05/08/2021 12:56:05 05/08/20 21 05/08/2021 CBC/C OMPLE TE BLD COUNT W/DIF F NRBC# 0.00 x10'3 /uL Not Available [facility] (Lab) [address] [place], [address], 05/08/2021 12:56:05 07/13/19 23 07/14/2022 HEMOG LOBIN [...] Care in Diabe derrick(A DA). Not Available [address] [address] [place], [address], 07/14/2022 03:22:34 07/13/19 23 07/14/2022 TSH TSH 1.35 mIU/L 0.40-4 .50 normal Not Available [facility] [address] [address] [place], [address], 07/14/2022 03:22:34 07/13/19 23 07/14/2022 CBC (INCL UDES DIFF/ PLT) white blood cell count 3.9 thous and/u L 3.8-10 .8 normal Not Available [facility] [address] [address] [place], [address], 07/14/2022 03:22:33 07/13/19 23 07/14/2022 CBC (INCL UDES DIFF/ PLT) red blood cell count 4.21 evens on/uL 3.80-5 .10 normal Not Available [address] [address] [place], [address], 07/14/2022 03:22:33 07/13/19 23 07/14/2022 CBC (INCL UDES DIFF/ PLT) hemoglobin 13.5 g/dL 11.7-1 5.5 normal Not Available [facility] [address] [address] [place], [address], 07/14/2022 03:22:33 07/13/19 23 07/14/2022 CBC (INCL UDES DIFF/ PLT) hematocrit 40.1 % 35.0-4 5.0 normal Not Available [address] [address] [place], [address], 07/14/2022 03:22:33 07/13/19 23 07/14/2022 CBC (INCL UDES DIFF/ PLT) MCV 95.2 fL 80.0-1 00.0 normal Not Available [address], [address], 07/14/2022 03:22:33 07/13/19 23 07/14/2022 CBC (INCL UDES DIFF/ PLT) MCH 32.1 pg 27.0-3 3.0 normal Not Available [address], [address], 07/14/2022 03:22:33 07/13/19 23 07/14/2022 CBC (INCL UDES DIFF/ PLT) MCHC 33.7 g/dL 32.0-3 6.0 normal Not Available [address], [address], 07/14/2022 03:22:33 07/13/19 23 07/14/2022 CBC (INCL UDES DIFF/ PLT) RDW 11.8 % 11.0-1 5.0 normal Not Available [address], [address], 07/14/2022 03:22:33 07/13/19 23 07/14/2022 CBC (INCL UDES DIFF/ PLT) platelet count 234 thous and/u L 140-40 0 normal Not Available [address], [address], 07/14/2022 03:22:33 07/13/19 23 07/14/2022 CBC (INCL UDES DIFF/ PLT) MPV 9.9 fL 7.5-12 .5 normal Not Available [address], [address], 07/14/2022 03:22:33 07/13/19 23 07/14/2022 CBC (INCL UDES DIFF/ PLT) absolute neutrophils 2188 cells /uL 1500-7 800 normal Not Available [address], [address], 07/14/2022 03:22:33 07/13/19 23 07/14/2022 CBC (INCL UDES DIFF/ PLT) absolute lymphocytes 1190 cells /uL 850-39 00 normal Not Available [address], [address], 07/14/2022 03:22:33 07/13/19 23 07/14/2022 CBC (INCL UDES DIFF/ PLT) absolute monocytes 277 cells /uL 200-95 0 normal Not Available [address], [address], 07/14/2022 03:22:33 07/13/19 23 07/14/2022 CBC (INCL UDES DIFF/ PLT) absolute eosinophils 207 cells /uL 15-500 normal Not Available [address], [address], 07/14/2022 03:22:33 07/13/19 23 07/14/2022 CBC (INCL UDES DIFF/ PLT) absolute basophils 39 cells /uL 0-200 normal Not Available [address], [address], 07/14/2022 03:22:33 07/13/19 23 07/14/2022 CBC (INCL UDES DIFF/ PLT) neutrophils 56.1 % normal Not Available [address], [address], 07/14/2022 03:22:33 07/13/19 23 07/14/2022 CBC (INCL UDES DIFF/ PLT) lymphocytes 30.5 % normal Not Available [address], [address], 07/14/2022 03:22:33 07/13/19 23 07/14/2022 CBC (INCL UDES DIFF/ PLT) monocytes 7.1 % normal Not Available [facility] [place] [address] [address], [place], [address], 07/14/2022 03:22:33 07/13/19 23 07/14/2022 CBC (INCL UDES DIFF/ PLT) eosinophils 5.3 % normal Not Available [address], [address], 07/14/2022 03:22:33 07/13/19 23 07/14/2022 CBC (INCL UDES DIFF/ PLT) basophils 1.0 % normal Not Available [address], [address], 07/14/2022 03:22:33 07/13/19 23 07/14/2022 COMPR EHENS EVE METAB OLIC PANEL bilirubin, total 0.7 mg/dL 0.2-1. 2 normal Not Available [address], [address], 07/14/2022 03:22:33 07/13/19 23 07/14/2022 COMPR EHENS EVE METAB OLIC PANEL alkaline phosphatase 30 U/L 37-153 low Not Available [address], [address], 07/14/2022 03:22:33 07/13/19 23 07/14/2022 COMPR EHENS EVE METAB OLIC PANEL AST 23 U/L 10-35 normal Not Available [address], [address], 07/14/2022 03:22:33 07/13/19 23 07/14/2022 COMPR EHENS EVE METAB OLIC PANEL ALT 17 U/L 6-29 normal Not Available [address], [address], 07/14/2022 03:22:33 07/13/19 23 07/14/2022 COMPR EHENS EVE METAB OLIC PANEL glucose 82 mg/dL 65-99 normal Fasti ng refer ence inter husam Not Available [address] [address] [place], [address], 07/14/2022 03:22:33 07/13/19 23 07/14/2022 COMPR EHENS EVE METAB OLIC PANEL urea nitrogen (BUN) 21 mg/dL 7-25 normal Not Available [address], [address], 07/14/2022 03:22:33 07/13/19 23 07/14/2022 COMPR EHENS EVE METAB OLIC PANEL creatinine 0.85 mg/dL 0.50-1 .05 normal Not Available [address] [address] [place], [address], 07/14/2022 03:22:33 07/13/19 23 07/14/2022 COMPR EHENS [...] kdoqi /gfr% 5Fcal culat or Not Available [address] [address] [place], [address], 07/14/2022 03:22:33 07/13/19 23 07/14/2022 COMPR EHENS EVE METAB OLIC PANEL BUN/creatini ne ratio not applic able (calc ) 6-22 Not Available [address] [address] [place], [address], 07/14/2022 03:22:33 07/13/19 23 07/14/2022 COMPR EHENS EVE METAB OLIC PANEL sodium 139 mmol/ L 135-14 6 normal Not Available [address] [address] [place], [address], 07/14/2022 03:22:33 07/13/19 23 07/14/2022 COMPR EHENS EVE METAB OLIC PANEL potassium 4.1 mmol/ L 3.5-5. 3 normal Not Available [address], [address], 07/14/2022 03:22:33 07/13/19 23 07/14/2022 COMPR EHENS EVE METAB OLIC PANEL chloride 102 mmol/ L 98-110 normal Not Available [address], [address], 07/14/2022 03:22:33 07/13/19 23 07/14/2022 COMPR EHENS EVE METAB OLIC PANEL carbon dioxide 34 mmol/ L 20-32 high Not Available [address], [address], 07/14/2022 03:22:33 07/13/19 23 07/14/2022 COMPR EHENS EVE METAB OLIC PANEL calcium 9.6 mg/dL 8.6-10 .4 normal Not Available [address], [address], 07/14/2022 03:22:33 07/13/19 23 07/14/2022 COMPR EHENS EVE METAB OLIC PANEL protein, total 7.0 g/dL 6.1-8. 1 normal Not Available [address], [address], 07/14/2022 03:22:33 07/13/19 23 07/14/2022 COMPR EHENS EVE METAB OLIC PANEL albumin 4.2 g/dL 3.6-5. 1 normal Not Available [address], [address], 07/14/2022 03:22:33 07/13/19 23 07/14/2022 COMPR EHENS EVE METAB OLIC PANEL globulin 2.8 g/dL_ (calc ) 1.9-3. 7 normal Not Available [address], [address], 07/14/2022 03:22:33 07/13/19 23 07/14/2022 COMPR EHENS EVE METAB OLIC PANEL albumin/glob ulin ratio 1.5 (calc ) 1.0-2. 5 normal Not Available [address], [address], 07/14/2022 03:22:33 07/13/19 23 07/14/2022 LIPID PANEL , STAND LILY cholesterol, total 259 mg/dL <200 high Not Available [address], [address], 07/14/2022 03:22:32 07/13/19 23 07/14/2022 LIPID PANEL , STAND LILY HDL cholesterol 60 mg/dL > or = 50 normal Not Available [address], [address], 07/14/2022 03:22:32 07/13/19 23 07/14/2022 LIPID PANEL , STAND LILY triglyceride s 93 mg/dL <150 normal Not Available [address], [address], 07/14/2022 03:22:32 07/13/19 23 07/14/2022 LIPID PANEL [...] 2061- 2068 (http ://ed ucati on.Kay [employer]hew [employer] com/f aq/FA Q164) Not Available [address] [address] [place], [address], 07/14/2022 03:22:32 07/13/19 23 07/14/2022 LIPID PANEL , STAND LILY chol/HDLC ratio 4.3 (calc ) <5.0 normal Not Available [address] [address] [address] , [place], [address], 07/14/2022 03:22:32 07/13/19 23 07/14/2022 LIPID PANEL , STAND LILY non HDL cholesterol 199 mg/dL _(braden c) <130 high For patie nts with diabe derrick plus 1 major ASCVD risk facto r, treat ing to a non-H DL-C goal of <100 mg/dL (LDL- C of <70 mg/dL ) is consi casid a kanu fraireo n. Not Available [address], [address], 07/14/2022 03:22:32 10/20/19 23 10/19/2022 LIPID PANEL , STAND LILY cholesterol, total 183 mg/dL <200 normal Not Available [address] [address] [place], [address], 10/19/2022 17:21:10 10/20/19 23 10/19/2022 LIPID PANEL , STAND LILY HDL cholesterol 62 mg/dL > or = 50 normal Not Available [address] [address] [place], [address], 10/19/2022 17:21:10 10/20/19 23 10/19/2022 LIPID PANEL , STAND LILY triglyceride s 73 mg/dL <150 normal Not Available [address] [address] [place], [address], 10/19/2022 17:21:10 10/20/19 23 10/19/2022 LIPID PANEL [...] 9): 2061- 206 (http ://ed ucati on.Qu belindaXenon Arc. com/f aq/FA Q164) Not Available [facility] [address] [place], [address], 10/19/2022 17:21:10 10/20/19 23 10/19/2022 LIPID PANEL , STAND LILY chol/HDLC ratio 3.0 (calc ) <5.0 normal Not Available [facility] [address] [place], [address], 10/19/2022 17:21:10 10/20/19 23 10/19/2022 LIPID PANEL , STAND LILY non HDL cholesterol 121 mg/dL _(braden c) <130 normal For patie nts with diabe derrick plus 1 major ASCVD risk facto r, treat ing to a non-H DL-C goal of <100 mg/dL (LDL- C of <70 mg/dL ) is consphillip fraireo n. Not Available [facility] [address] [place], [address], 10/19/2022 17:21:10 02/21/20 21 02/20/2021 elect maria esther fan am No observ ation record ed. [id number] Not Available 08/04/2022 09:34:08 03/02/20 21 US, abdom en, limit ed [facility] [address] [place] [address] [phone] Asim t Name: CHET CHARLES Access ion #: [id number] Sex: F : 1960 4 Locati [...] portal venous color Page 1 of 2 [facility] Asim t Name: CHET CHARLES Access ion #: [id number] Sex: F : 1960 4 Exam [...] 8:36 AM (CT) Page 2 of 2 MIGRATION.[id number] [facility] ([facility]) [address] [place], [address], 08/04/2022 09:34:08 04/13/20 21 US, abdom en, limit ed [facility] [address] [place] [address] [phone] Patien t Name: CHET CHARLES ion #: [id number] Sex: F : 1960 4 Locati [...] t Name: CHET CHARLES Access ion #: [id number] Sex: F : 1960 4 Exam [...] 8:36 AM (CT) Page 2 of 2 [id number].[id number] [facility] ([facility]) [address] [place], [address], 08/04/2022 09:34:08 07/13/19 22 07/11/2021 MAMMO , kathy chapman, bilat eral No observ ation record ed. [id number], [place], [address], 08/04/2022 09:34:08 09/08/19 23 09/07/2022 MAMMO , scree adela, bilat eral No observ ation record ed. [email or web address] [facility] [address], [place], [address], 09/07/2022 21:29:26 09/09/19 23 09/07/2022 DEXA No observ ation record ed. [email or web address] [facility] [address], [place], [address], 09/08/2022 07:56:05 Result Notes None recorded. Problems Name Problem SNOMED Code Status Onset Date Resolution Date Notes Provider Name and Address Organization Details Recorded Time History of total knee arthroplas ty 2279744639088 Active 2020 Not Available [facility] 3 09:29:49 Deviated nasal septum 119934683 Active 2016 Not Available [facility] 3 09:29:49 Central abdominal pain 449458748 Active Not Available [facility] 3 09:29:49 Body mass index 25-29 - overweight 879727719 Active 2016 Not Available [facility] 3 09:29:49 Insomnia 117000083 Active 2016 Not Available [facility] 3 09:29:49 Polyp of gallbladde r 885765258 Active 2020 Not Available [facility] 3 09:29:49 Fibromyalg ia 451608091 Active 2020 Not Available [facility] 3 09:29:49 Spasm of back muscles 801777792 Active Not Available [facility] 3 09:29:49 Headache 96543091 Active Not Available [facility] 3 09:29:49 Weight increased 521536904 Active Not Available [facility] 3 09:29:49 Biliary sludge 39220039 Active 2020 Not Available [facility] 3 09:29:49 Toothache 80574118 Active Not Available [facility] 3 09:29:50 Thoracic back pain 649671889 Active 2016 Not Available [facility] 3 09:29:50 Osteopenia 317428124 Active 2018 Not Available [facility] 3 09:29:50 Vitamin D deficiency 32467446 Active Not Available [facility] 3 09:29:50 Pain of multiple joints 76349556 Active 2020 Not Available [facility] 3 09:29:50 Strain of neck muscle 537774040 Active 2016 Not Available [facility] 3 09:29:50 Osteoarthr itis 150497610 Active 2016 Not Available [facility] 3 09:29:50 Eczema 62828478 Active Not Available [facility] 3 09:29:50 Herpes zoster 3096639 Active 2017 Not Available [facility] 3 09:29:50 Hyperlipid emia 20266015 Active 2020 Not Available [facility] 3 09:29:50 Essential hypertensi on 07308912 Active 2020 Not Available [facility] 3 09:29:50 Allergic rhinitis 00895564 Active Not Available [facility] 3 09:29:50 Urinary tract infectious disease 92817859 Active Not Available [facility] 3 09:29:50 Muscle pain 16265765 Active 2019 Not Available [facility] 3 09:29:51 Epigastric pain 87924334 Active Not Available [facility] 3 09:29:51 Skin lesion 34388782 Active 2020 Not Available [facility] 3 09:29:51 Low back pain 439501964 Active 2022 Ashlee Mahoney NP [address], [place] [address], [place], [address] , [facility] 3 12:57:45 Problem Notes None recorded. Procedures Surgical History Date Name Laterality Status Provider Name and Address Organization Details Recorded Time 09/08/19 23 Most Recent Bone Density completed Ashlee Mahoney NP [address] [facility], [address], [place], [address], [place] [facility] [employer] 09/08/2022 07:55:46 03/16/20 21 Knee Replacement completed Not Available [facility] 08/04/2022 09:27:02 10/18/19 21 Date of Last Colonoscopy completed Not Available [facility] 08/04/2022 09:27:01 06/16/19 21 Knee Replacement completed Not Available [facility] 08/04/2022 09:27:02 Imaging Results Imaging Date Name Status LastModified by Organization Details LastModified Time 02/20/2021 electrocardiogram completed MIGRATION. [id number] Information not available 08/04/2022 09:34:08 03/02/2021 US, abdomen, limited completed MIGRATI ON.[id number] [facility] (Imaging) [address] [place], [address], 08/04/2022 09:34:08 04/13/2021 US, abdomen, limited completed MIGRATI ON.[id number] [facility] ([facility]) [address] [place], [address], 08/04/2022 09:34:08 07/11/2021 MAMMO, screening, bilateral completed MIGRATION.[id number], [address], 08/04/2022 09:34:08 09/07/2022 MAMMO, screening, bilateral completed [email or web address] [place] [address], [address], 09/07/2022 21:29:26 09/07/2022 DEXA completed [address], [address], 09/08/2022 07:56:05 Procedure Notes None recorded. Medical [...] Relief 50 mcg/actua tion nasal spray,eliezer pension Merlin 1 spray every day by intranas al [...] % 99 % 72 /min 98 [degF] 59360.0 7 g 118 mm[Hg] 72 mm[Hg] Not Available [facility] 3 09:27:13 Date Recorded Body mass index (BMI) Body height Oxygen saturation Oxygen saturation in Arterial blood by Pulse oximetry Heart rate Body temperature Body weight Systolic blood pressure Diastolic blood pressure Provider Name and Address Organization Details Last Updated DateTime 1 27.7 kg/m2 172.72 cm 97 % 97 % 88 /min 97.4 [degF] 81132.8 1 g 122 mm[Hg] 78 mm[Hg] Not Available [facility] 3 09:27:13 Date Recorded Body mass index (BMI) Body height Oxygen saturation Oxygen saturation in Arterial blood by Pulse oximetry Heart rate Body temperature Body weight Systolic blood pressure Diastolic blood pressure Provider Name and Address Organization Details Last Updated DateTime 2 22.6 kg/m2 172.72 cm 99 % 99 % 82 /min 98.5 [degF] 18098.4 7 g 132 mm[Hg] 80 mm[Hg] Not Available [facility] 3 09:27:13 Date Recorded Body mass index (BMI) Body height Oxygen saturation Oxygen saturation in Arterial blood by Pulse oximetry Heart rate Respiratory rate Body temperature Body weight Systolic blood pressure Diastolic blood pressure Provider Name and Address Organization Details Last Updated DateTime 3 24.4 kg/m2 172.72 cm 97 % 97 % 69 /min 16 /min 97.6 [degF] 79380.5 g 127 mm[Hg] 82 mm[Hg] Not Available [facility] 3 09:27:13 Date Recorded Body height Body temperature Heart rate Respiratory rate Oxygen saturation Oxygen saturation in Arterial blood by Pulse oximetry Systolic blood pressure Diastolic blood pressure Provider Name and Address Organization Details Last Updated DateTime 3 172.72 cm 96.6 [degF] 78 /min 16 /min 99 % 99 % 122 mm[Hg] 78 mm[Hg] Kamaljit JIM[facility]NEZ [facility] 3 14:04:49 Social History Question Answer Notes LastModified by Organizat ion Details LastModified Time Tobacco Smoking Status Never Smoker Not Available [facility] 08/04/2022 09:26:36 Do You Have An Advance Directive? Yes [id number] Information not available 08/04/2022 What Is Your Level Of Alcohol Consumption? None MIGRATION.803137 4368 Information not available 08/04/2022 What Is Your Level Of Caffeine Consumption? Occasional MIGRATION.550212 2294 Information not available 08/04/2022 What Is Your Code Status? Full Code MIGRATION.[id number] 9754 Information not available 08/04/2022 What Type Of Diet Are You Following? REGULAR MIGRATION.981986 3493 Information not available 08/04/2022 What Is The Highest Grade Or Level Of School You Have Completed Or The Highest Degree You Have Received? [id number] MIGRATION.963808 2564 Information not available 08/04/2022 Have There Been Any Changes To Your Family Or Social Situation? No MIGRATION.058789 9779 Information not available 08/04/2022 What Is The Fluoride Status Of Your Home? Unknown MIGRATION.849423 4469 Information not available 08/04/2022 Do You Use Insect Repellent Routinely? Yes MIGRATION.753245 5227 Information not available 08/04/2022 Where Do You Live? [place]House MIGRATION.610145 0726 Information not available 08/04/2022 Do You Have A Medical Power Of Solder Making Supervisor? Yes MIGRATION.571465 6571 Information not available 08/04/2022 Do You Have Any Pets? Yes MIGRATION.912116 8342 Information not available 08/04/2022 What Is Your Relationship Status? MIGRATION.799992 3906 Information not available 08/04/2022 Do You Use Your Seat Belt Or Car Seat Routinely? Yes MIGRATION.106393 7811 Information not available 08/04/2022 Do You Have Smoke And Carbon Monoxide Detectors In Your Home? Yes MIGRATION.796186 2119 Information not available 08/04/2022 Are You Passively Exposed To Smoke? No MIGRATION.339448 0319 Information not available 08/04/2022 Are There Any Smokers In Your House? No MIGRATION.041441 9394 Information not available 08/04/2022 Do You Participate In Social Media? No MIGRATION.574806 7791 Information not available 08/04/2022 Do You Feel Stressed (tense, Restless, Nervous, Or Anxious, Or Unable To Sleep At Night)? [id number] MIGRATION.738138 1456 Information not available 08/04/2022 Do You Use Sunscreen Routinely? Yes MIGRATION.748263 1329 Information not available 08/04/2022 Are You Currently In School? No MIGRATION.527981 6611 Information not available 08/04/2022 Do You Have Any Dietary Restrictions? No MIGRATION.399170 2173 Information not available 08/04/2022 Sex: Female Functional Status Question Answer Note LastModified by Organizat ion Details LastModified Time What is your exercise level? Occasional [id number].[id number] 26 Information not available 08/04/2022 Mental Status None recorded. Family History Relationship Description Onset Age of this Age Resolved Age Notes LastModified by Organization Details LastModified Time Maternal Aunt Hyperlipidem ia [id number] Not available 08/04/2022 09:27:02 Medical History Condition Response BLINDNESS N RHEUMATIC FEVER N KIDNEY STONES N BLADDER PROBLEMS N MRSA N OTHER # 1 N POLIO N LUNG DISEASE/DISORDER N RADIATION / CHEMOTHERAPY N COPD N Other # 2 N BLOOD DISEASES N SURGERY N EAR OR HEARING PROBLEMS N MUMPS N FEMALE PROBLEMS / INFECTIONS N DEPRESSION (INCLUDING POST ) N BOWEL PROBLEMS N STROKE/TIA N THYROID DISEASE N ULCERS [...] GLAUCOMA N FOOT PROBLEM N DIVERTICULITIS N SLEEP APNEA N CHICKENPOX N ALLERGIES/HAYFEVER N INFECTIOUS DISEASE N PROSTATE N HEART ARRHYTHMIA N INSOMNIA N HIGH CHOLESTEROL / HYPERLIPIDEMIA N HYPERTHYROIDISM N EYE PROBLEMS N EATING DISORDER N EDEMA N CHRONIC PAIN SYNDROME N CONSTIPATION N CAROTID BLOCKAGE N BACK / NECK PROBLEMS N HAVE YOU BEEN HOSPITALIZED OR SEEN IN [facility] IN THE PAST YEAR ? N [...] N PAIN N HERPES N DEMENTIA N SEIZURES/EPILEPSY N HEADACHES/MIGRAINES N VASCULAR DISEASE N PACEMAKER N DIZZINESS N KIDNEY DISEASE N HEART DISEASE/HEART PROBLEMS N SCARLET FEVER N MULTIPLE SCLEROSIS N MENTAL DISORDER/ILLNESS N DEVELOPMENTAL OR BEHAVIORAL DISORDERS N CARDIAC ARRHYTHMIA N CANCER: SPECIFY N PNEUMONIA N Gall Stones N ATRIAL FIBRILLATION N PULMONARY EMBOLISM N AUTOIMMUNE DISEASE N Gynecological History Statement/Question Response Date of Last Mammogram 09/07/2022 Date of Last Colonoscopy 10/17/2020 Most Recent Bone Density 09/07/2022 Obstetrics History GPAL:G 0 P 0 0 0 0 Immunizations Vaccine Type Date Status Note Provider Nam e and Address Organization Details Recorded Time Influenza, split virus, quadrivalent, PF 3 completed Ashlee Mahoney NP [address] [facility], [facility] [address], [place], [address], [facility] 04/14/2023 16:33:25 SARS-COV-2 (COVID-19) vaccine, UNSPECIFIED 1 completed Not Available [facility] 08/04/2022 09:33:49 SARS-COV-2 (COVID-19) vaccine, UNSPECIFIED 0 completed Not Available [facility] 08/04/2022 09:33:49 Influenza, split virus, quadrivalent, preservative 9 completed Not Available [facility] 08/04/2022 09:33:49 Influenza, split virus, quadrivalent, preservative 7 completed Not Available [facility] 08/04/2022 09:33:49 Influenza, split virus, quadrivalent, PF 2 completed Not Available [facility] 08/04/2022 09:33:49 Influenza, split virus, quadrivalent, PF 1 completed Not Available [facility] 08/04/2022 09:33:49 Past Encounters Encounter ID Performer Location Encounter Start Date Encounter Closed Date Diagnosis/Indication Diagnosis SNOMED-CT Code Diagnosis ICD10 Code Diagnosis Note [id number] Luis Manuel Vaughan MD [facility] [address] [place] [id number] 1 10/08/2020 00:00:00 10/08/2020 18:11:55 [id number] Luis Manuel Vaughan MD [facility] [address] [place] [id number] 1 02/17/2021 00:00:00 02/17/2021 11:44:20 [id number] Luis Manuel Vaughan MD [facility] [address] [place] [id number] 1 04/23/2021 00:00:00 04/23/2021 12:58:40 [id number] Ashlee Mahoney NP [facility]_[address] [id number] 03/10/2022 00:00:00 03/10/2022 11:39:42 [id number] Luis Manuel Vaughan MD [address] [id number] 07/20/2022 00:00:00 07/20/2022 11:45:59 [id number] Ashlee Mahoney NP [facility]_[address] [id number] 04/14/2023 13:56:54 04/14/2023 16:52:10 Administration of influenza vaccine 65725110 Z23 flu shot 04/14/23. Adult heal th examination 995110605 Z00.00 Encouraged well balanced meals, active lifestyle, and routine vision and dental appts. Hyperlipidemia 65741324 E78.5 lovastatin 20 mg po daily. Essential hypertension 15916546 I10 Lisinopril 5 mg po daily. Fibromyalgia 744035870 M 79.7 Osteoarthritis 913091416 M19.90 celecoxib 200 mg po bid. Osteopenia 019367498 M85 .80 vit d and calcium. Has apt with [facility] health clinic in Jan 2024. Vitamin D deficiency 347 [address]9988 E55.9 Herpes zoster 9631706 B0 2.9 seeing ophthalmol ogist- right eye [...] ID Guarantor Name 04/14/2023 1 [employer] (POS) [id number] Mazin Charles [id number] Chet Charles Notes Date Note Type Note Provider Name and Address Organization Details Recorded Time 04/14/2023 text/html Here for check up, wellness. Some aches and pain still.Feeling better since knee replacements.Sti ll traveling to see mother and care for her in [facility] weekly.Seeing well, has scar right eye. [facility] 20[facility]. Calcium and vit d. Ashlee Mahoney, AMELIA [address] [facility], [facility] [address], [place], [address], [facility] 04/14/2023 16:44:01 OBGyn Episode No OBEpisode recorded.
--- OUTSIDE RECORDS SUMMARY | 2024-10-12 09:08 | XMS_ITS | Clinical Summary ---
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 Gender Identity Not on file Sexual Orientation Not on file Last Filed Vital Signs Vital Sign Reading Time Taken Comments Blood Pressure 132/92 07/09/2014 11:21 AM KILN REPAIRER Pulse 84 07/09/2014 11:21 AM KILN REPAIRER Temperature - - Respiratory Rate - - Oxygen Saturation - - Inhaled Oxygen Concentration - - Weight 71.2 kg (157 lb) 07/09/2014 11:21 AM KILN REPAIRER Height 172.7 cm (5' 8 ) 07/09/2014 11:21 AM KILN REPAIRER Body Mass Index 23.87 07/09/2014 11:21 AM KILN REPAIRER Plan of Treatment Health Maintenance Due Date [...] Most Recently Relevant to Health Maintenance Insurance [facility] OPTIONS PPO [id number] Care Teams Supply Chain Manager Relationship Specialty Start Date End Date Mateo Culver MD [address] [place] [address] PCP - General Internal Medicine 07/09/14
--- OUTSIDE RECORDS SUMMARY | 2024-10-12 09:09 | XMS_ITS | Referral Summary ---
Author Organization [facility] Address [address] [place] [address] Phone Care Team Providers Care Floor Finisher Helper Name Role Phone Ashlee Pereyra SENIOR INFORMATION SECURITY ENGINEER Primary Care Provider + Allergies No known [...] (09/11/2020): Added automatically from request for surgery [id number] Encounter for screening colonoscopy 09/11/2020 Overview (09/11/2020): Added automatically from request for surgery [id number] Osteoarthritis 12/26/2014 Overview (09/09/2016): Osteoarthritis Psychogenic headache [...] on file Legal Sex Female 3:41 PM 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 Room: [facility] ROOM 2 Note Status: Finalized Patient [...] scope was passed under direct vision. TheColonoscope [id number] was introduced through the anus and advanced to the the cecum, identified by appendiceal orifice and ileocecal valve. The scopewas passed under direct vision. The ColonoscopeCF-[id number] was introduced through the and advancedto the. [...] history of colonic polyps CPT copyright 2019 [employer]. All rights reserved. The codes documented in this report are preliminary and upon certified coder reviewmay be revised to meet current compliance requirements. Recognized by the [employer] for promoting quality in endoscopy Pee Leija MD ENDOSCOPY PROCEDURES Final Re sult from Last 3 Months or Most Recently Relevant to Health Maintenance Insurance [facility] Advance Directives For more information, please contact: [phone] * Full Code (Latest Code Status on File) Date Activated Date Inactivated Comments 10/17/2020 7:57 AM 10/17/2020 2:13 PM * Full Code Date Activated Date Inactivated Comments 10/17/2020 7:56 AM 10/17/2020 7:57 AM Care Teams Floor Finisher Helper Relationship Specialty Start Date End Date Ashlee Pereyra NP PCP - General Nurse Practitioner 05/15/19
--- OUTSIDE RECORDS SUMMARY | 2024-10-12 09:09 | XMS_ITS | Clinical Summary ---
Author Organization [facility] Address [address] [place] [address] Care Team Providers Care Hat Finisher Name Role Phone Ashlee Pereyra Philomena CADET-CARPET TILE LAYER Primary Care Provider Source Comments [facility],non-owned Affiliates and Associated Physician Practices is amultiple site organization consisting of ambulatory clinics and hospital sitesin [place], [place], [place] and [place]. This disclosure is being madepursuant to the Care Everywhere program and may not contain all information available regarding this patient. 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 Gender Identity Not on file Sexual Orientation [...] this topic Medical Devices Implanted Type Area Road Machine Runner Device Identifier Shelf Expiration Date Model / Serial / Lot Cmnt Bone Djo Srg Cblt 40gm Hvisc Strl Implanted:Qty: 1 on 06/16/2020 by Jaison East MD at [facility] Left: Knee [employer] 10/31/2020 600-15-000 / / [id number] Tray Tib 71mm Kn Cocr I Beam Implanted:Qty: 1 on 06/16/2020 by Jaison East MD at [facility] Left: Knee [employer] 02/26/2030 [id number] / / [id number] Cmpnt Fem Kn Lt Cr Cmnt Prm Vngrd Intlk 67.5mm Implanted:Qty: 1 on 06/16/2020 by Jaison East MD at [facility] Left: Knee [employer] 06/11/2026 [id number] / / [id number] Cmpnt Ptlr 28mm 1 Pg Wire Ascnt Arcm Kn Implanted:Qty: 1 on 06/16/2020 by Jaison East MD at [facility] Left: Knee [employer] 04/17/2025 [id number] / / [id number] Brng [id number] Vngrd Arcm Kn Ant Stab Implanted:Qty: 1 on 06/16/2020 by Jaison East MD at [facility] Left: Knee [employer] 02/05/2025 [id number] / / [id number] Brng [id number] Vngrd Arcm Kn Ant Stab Implanted:Qty: 1 on 03/16/2021 by Jaison East MD at [facility] Right: Knee [employer] 09/08/2025 [id number] / / [id number] Cmnt Bone Djo Srg Cblt 40gm Hvisc Strl Implanted:Qty: 1 on 03/16/2021 by Jaison East MD at [facility] Right: Knee [employer] 07/08/2022 600-15-000 / / [id number] Cmpnt Fem Kn Rt Cr Cmnt Prm Vngrd Intlk Implanted:Qty: 1 on 03/16/2021 by Jaison East MD at [facility] Right: Knee [employer] 10/23/2030 [id number] / / [id number] Cmpnt Ptlr 28mm 1 Pg Wire Ascnt Arcm Kn Implanted:Qty: 1 on 03/16/2021 by Jaison East MD at [facility] Right: Knee [employer] 11/17/2025 [id number] / / [id number] Tray Tib 71mm Kn Cocr I Beam Implanted:Qty: 1 on 03/16/2021 by Jaison East MD at [facility] Right: Knee [employer] 05/28/2030 [id number] / / [id number] Insurance [employer] Advance Directives * Full Code (Latest Code Status on File) Date Activated Date Inactivated Comments 03/16/2021 11:40 AM 03/17/2021 5:19 PM * Full Code Date Activated Date Inactivated Comments 06/16/2020 11:45 AM 06/17/2020 12:38 PM Care Teams Hat Finisher Relationship Specialty Start Date End Date Ashlee Pereyra, FERMENTATION MANAGER-CARPET TILE LAYER [address] [place] [phone] PCP - General Nurse Practitioner Family 06/02/20
--- OUTSIDE RECORDS SUMMARY | 2024-10-12 09:09 | XMS_ITS | Clinical Summary ---
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 Room: [facility] ROOM 2 Note Status: Finalized Patient [...] scope was passed under direct vision. TheColonoscope [id number] was introduced through the anus and advanced to the the cecum, identified by appendiceal orifice and ileocecal valve. The scopewas passed under direct vision. The ColonoscopeCF-[id number] was introduced through the and advancedto the. [...] history of colonic polyps CPT copyright 2019 [employer]. All rights reserved. The codes documented in this report are preliminary and upon consolidator reviewmay be revised to meet current compliance requirements. Recognized by the [employer] for promoting quality in endoscopy Pee Leija MD ENDOSCOPY PROCEDURES Final Re sult from Last 3 Months or Most Recently Relevant to Health Maintenance Insurance [employer] MD [employer] [facility] Advance Directives For more information, please contact: [phone] * Full Code (Latest Code Status on File) Date Activated Date Inactivated Comments 10/17/2020 7:57 AM 10/17/2020 2:13 PM * Full Code Date Activated Date Inactivated Comments 10/17/2020 7:56 AM 10/17/2020 7:57 AM Care Teams Lunchroom Monitor Relationship Specialty Start Date End Date Ashlee Pereyra NP PCP - General Nurse Practitioner 05/15/19
--- OUTSIDE RECORDS SUMMARY | 2024-10-12 09:09 | XMS_ITS | Clinical Summary ---
Author Organization [facility] Address [address] [place] [id number] Care Team Providers Care Guest Relations Agent Name Role Phone Ashlee Pereyra 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 Gender Identity Not on file Sexual Orientation Not on file Plan of Treatment Health Maintenance Due Date Last Done Comments Cervical Cancer Screening Pap Smear (Age 30 to 64) Every 3 Years 1959 Colorectal Cancer Screening Colonoscopy (10 Years) 1959 Annual Physical 12/19/1962 Hepatitis C 12/19/1977 DTaP, Tdap and Td Vaccines (1 - Tdap) 12/19/1978 Cervical Cancer Screening Pap with HPV Testing (Age 30 to 64) Every 5 Years 12/19/1989 Cervical Cancer Screening with HPV 12/19/1989 Mammogram Screening 1999 Pneumococcal Vaccine: 50+ Years (1 of 1 - PCV) 12/19/2009 Zoster Vaccines (1 of 2) 12/19/2009 COVID-19 Vaccine ( - season) 2024 06/18/2022, 04/24/2021, 06/13/2020, Additional history exists RSV Immunization or 60+ Years (1 - 1-dose 75+ series) 12/19/2034 Meningococcal B Vaccine Aged Out No l onger eligible based on patient's age to complete this topic Meningococcal Vaccine Aged Out No gena maximo eligible based on patient's age to complete this topic RSV Immunizations Under 20 Months Aged Out No longer eligible based on patient's age to complete this topic Insurance [employer] Care Teams Guest Relations Agent Relationship Specialty Start Date End Date Ashlee Pereyra, TEA PLANTATION WORKER-BC [address] [place] [phone] PCP - General Nurse Practitioner Family 08/31/23
[2024-10-12 09:20] LABS: Estimated Glomerular Filt Rate 56
== END 2024-10-12 09:02 | disposition home or self-care (01) ==
PROVIDERS: PCP Nurse Practitioner Family; Visit Provider Internal Medicine Cardiovascular Disease
DX: I71.21 Aneurysm of the ascending aorta, without rupture (principal); R93.2 Abnormal findings on diagnostic imaging of liver and biliary tract; N13.30 Unspecified hydronephrosis
CPT/HCPCS: 71275; Q9967